=== PATIENT | female | born 1940 | race Caucasian/White ===

== ENCOUNTER → 2018-02-02 11:43 | Outpatient (CLI) | payer MEDICARE, OTHER, SELFPAY ==
--- NOTE | 2018-02-02 | DI.MRI.S_ITS ---
PROCEDURE: MR KNEE LT WO CON INDICATIONS: UNILATERAL PRIMARY OSTEOARTHRITIS LEFT KNEE TECHNIQUE: Noncontrast sagittal PD fast spin echo and T2 fast spin echo with fat saturation, sagittal 3-D FLASH with fat saturation; coronal T1 spin echo and PD fast spin echo with fat saturation, and axial PD fast spin echo with fat saturation through the knee. COMPARISON: [facility] [place], CR, XR KNEE ARTHRITIC SERIES LT, 12/12/2017, 8:23. FINDINGS: Image quality: Excellent. Menisci: There is medial extrusion of the medial meniscus, which demonstrates fragmentation and multifocal degenerative tearing. Linear and amorphous high signal intensity within the anterior horn and body of the lateral meniscus is present, demonstrating inferior articular surface extension, indicating horizontal tearing. Cruciate ligaments: The posterior cruciate ligament demonstrates full thickness tearing. The anterior cruciate ligament demonstrates severe signal loss, consistent with partial-thickness tearing. Medial structures: The medial collateral ligament demonstrates a small region of fluid signal intensity at the femoral insertion site. Visualized portions of the pes anserinus tendons appear normal. No abnormal bursal fluid. Lateral structures: The lateral collateral ligament, long and short heads of the biceps femoris tendon appear intact. The popliteus tendon appears normal. Iliotibial band appears normal. Anterior structures: The quadriceps and patellar tendons appear intact. Patellar alignment is normal. No femoral trochlear dysplasia or ventral trochlear prominence. No edema in the infrapatellar fat pad. Bones and cartilage: No bone marrow contusions or fractures. Severe tricompartmental articular osteophyte formation is present. There is an intramedullary mixed high and low T2 signal intensity focus within the visualized portions of the proximal tibia, measuring at least 66 mm craniocaudal, but extending below the imaged plane. The severe diffuse articular cartilage loss overlies the weightbearing aspects of the medial femoral condyle and medial tibial plateau. Moderate subchondral cysts and ill-defined T2 signal elevation within the weightbearing aspects of the medial femoral condyle and medial tibial plateau are present, compatible with degenerative sequelae. Severe articular cartilage loss overlies the medial patellar facet and medial femoral trochlea. Joint space: There is a small knee joint effusion, a small Miles's cyst, and intra-articular loose bodies, largest of which is are in the anteromedial aspect of the knee joint, measuring roughly 12-13 mm each. Normal appearing synovial plicae are incidentally noted. IMPRESSION: 1. Severe tricompartmental osteoarthritis with associated articular cartilage loss. 2. Full-thickness posterior cruciate ligament tear. High-grade partial thickness anterior cruciate ligament tear. 3. Severe degenerative tearing of the medial meniscus. Next degenerative and horizontal tearing of lateral meniscus. 4. Indeterminate region of intramedullary high and low T2 signal intensity within the proximal tibia, which is incompletely visualized. 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 Repeat plain films of the tibia and fibula are recommended. 5. Knee joint effusion, Miles's cyst, and intra-articular loose bodies. 6. Partial-thickness medial collateral ligament tear. Dictated by: Geno Echevarria M.D. on 02/02/2018 at 13:31 Approved by: Geno Echevarria M.D. on 02/02/2018 at 13:42
== END ==
PROVIDERS: Visit Provider Orthopaedic Surgery
DX: S83.512A Sprain of anterior cruciate ligament of left knee, initial encounter (principal); S83.412A Sprain of medial collateral ligament of left knee, initial encounter; S83.522A Sprain of posterior cruciate ligament of left knee, initial encounter; M17.12 Unilateral primary osteoarthritis, left knee; M71.22 Synovial cyst of popliteal space [Baker], left knee; M25.462 Effusion, left knee; M23.242 Derangement of anterior horn of lateral meniscus due to old tear or injury, left knee; M23.204 Derangement of unspecified medial meniscus due to old tear or injury, left knee
CPT/HCPCS: 73721

== ENCOUNTER → 2018-03-06 11:12 | Outpatient (CLI) | payer MEDICARE, OTHER, SELFPAY ==
[2018-03-06 12:34] LABS: Hemoglobin A1C% w Est Avg Glu 6.1 % (4.0-6.0)
[2018-03-06 12:37] LABS: Add Manual Diff / Slide Review NO; Eosinophils Percent Auto 1.1 % (2-4); Hematocrit 41.6 % (36-46); Lymphocytes Percent Auto 20.8 % (25-40); Mean Corpuscular HGB Conc 33.6 % (30-36); Mean Corpuscular Hemoglobin 29.1 PG (26-34); Mean Corpuscular Volume 86.4 fL (80-100); Monocytes Percent Auto 9.1 % (3-14); Neutrophils Absolute Auto 4900 /uL (3000-5900); Platelet Count 261 X10^3/uL (150-400); Red Blood Cell Count 4.82 X10^6/uL (4.0-5.2); Red Cell Distribution Width 13.2 % (11.6-14.8); White Blood Cell Count 7.2 X10^3/uL (4.5-11.0)
[2018-03-06 12:48] LABS: BUN Creatinine Ratio 18.8 (6-22); Blood Urea Nitrogen 15 mg/dL (7-17); Calcium 9.7 mg/dL (8.4-10.2); Carbon Dioxide 31 mmol/L (22-32); Chloride 98 mmol/L (98-107); Estimated Glomerular Filt Rate > 60.0 mL/min (>60); Glucose 113 mg/dL (80-110); HEMOLYSIS < 15 (0-50); Potassium 3.8 mmol/L (3.4-5.1); Sodium 140 mmol/L (137-145)
== END ==
PROVIDERS: Visit Provider Orthopaedic Surgery
DX: E87.8 Other disorders of electrolyte and fluid balance, not elsewhere classified (principal); M25.562 Pain in left knee; R73.09 Other abnormal glucose; Z01.818 Encounter for other preprocedural examination
CPT/HCPCS: 36415; 80048; 83036; 85025; 93005

== ENCOUNTER 2018-03-23 06:39 | Inpatient (IN) | payer MEDICARE, OTHER, SELFPAY ==
[2018-03-13 09:00] VITALS: BMI 39.4
[2018-03-23] VITALS (13 sets, daily range): BP systolic 97–138; BP diastolic 54–97; PULSE 67–99; RESP 10–20; TEMP 36.3–36.9; O2SAT 91–98; BMI 39.4
--- NOTE | 2018-03-23 06:00 | DI.RAD.S_ITS ---
PROCEDURE: XR KNEE LT 1TO2V INDICATIONS: post op TECHNIQUE: 2 view(s) of the knee acquired. COMPARISON: None. FINDINGS: Bones: Patient is status post knee joint arthroplasty. Hardware components are in expected positions. Visualized bony structures are intact. Soft tissues: Overlying postoperative changes are noted. IMPRESSION: Expected postoperative appearance. Dictated by: Naif Ashley M.D. on 03/23/2018 at 10:33 Approved by: Naif Ashley M.D. on 03/23/2018 at 10:34
[2018-03-23] MEDS: LACTATED RINGERS 1,000 ML 42 ML IV (07:20)
[2018-03-23] MEDS: ACETAMINOPHEN 325 MG TABLET 975 MG PO ×3 (07:23→20:30)
[2018-03-23] MEDS: CELECOXIB 200 MG CAPSULE PO (07:25)
[2018-03-23] MEDS: PREGABALIN 75 MG CAPSULE PO (07:25)
--- NOTE | 2018-03-23 07:47 | PM.PREOP ---
Pre-operative Note Interval Note Pre-op Check: Yes History & Physical Reviewed by Physician and Yes Exam Performed Changes: No
--- NOTE | 2018-03-23 07:50 | PM.OP.1 ---
Operative Date/Time/Diagnoses Date of procedure: 03/23/18 Time of procedure: 09:39 Pre-op diagnosis: Left knee osteoarthritis Post-op diagnosis: same Procedure & Clinicians Procedure: Left total knee arthroplasty Same procedure as scheduled: Yes Indications: The patient presents today for total knee arthroplasty after failure of conservative treatment. The nature of the procedure including the risks and benefits, alternatives, postoperative course and expected outcome were discussed and all questions answered. Consent was obtained. Operative site confirmed and marked. Surgeon: Zay Silva [employer] Tech: Melissa Siddiqui Anesthesia Type: General, Spinal and Local Operative Notes Findings: Osteoarthritis. Closure Type: primary Specimen(s): none sent Implants & Drains: [employer] BCS: 4 femoral component, 3 tibial component, 10 mm BCS polyethylene tray and 32 x9 mm round patella Applied: implant(s) Estimated Blood Loss (mL): 50 Blood products transfused: none Tourniquet time (min): 22 Procedure in detail: The patient was taken to the operative suite and placed under general and spinal anesthesia. The patient was given prophylactic antibiotics prior to surgery. The patient was also given tranexamic acid, 1 g, just prior to surgery for postoperative hemostasis. The lateral knee was prepped and the joint injected with 20 mL of 1% Lidocaine with epinephrine. The knee was then prepped and draped in usual sterile fashion. The leg was exsanguinated with an Esmarch dressing and the tourniquet raised to 250 torr. A 15 cm anterior incision was made. Next a medial trivector arthrotomy was made. The extensor mechanism was marked to ensure accurate repair. Initial exposing dissection was carried out medially and laterally. The knee was then extended and the patellar thickness was measured and a cut made removing approximately 9 mm of bone with a goal of restoring normal patellar thickness. The patella was then sized and drilled. Some excess lateral bone was excised and the patellofemoral ligament released. The tourniquet was then released. The knee was then flexed and the [employer] femoral guide was placed. The anterior pins were placed and the distal rotation holes drilled. The distal cutting guide was placed and the templated distal femoral cut was made. The templating cutting block was then placed and the anterior, posterior and chamfer cuts made. The [employer] tibial guide was placed and the alignment checked along the axis of the proximal tibial with a durga. The proximal tibial cut was then made with an oscillating saw. All meniscus and bony debris was then removed. Flexion extension gaps were checked. The gaps were tight in both flexion and extension. Another 2 mm was taken from the tibia. No specific balancing was required other than routine exposure and removal of osteophytes and normal medial soft tissue releases. The soft tissues were then injected with a combination of 20 mL of half percent Marcaine with epinephrine and 20 mL of Exparel. The trial components were then placed. The knee went into full extension and flexion beyond 120?. There was excellent medial- lateral balance throughout motion with just slight increased laxity in extension versus flexion. Patellar tracking was excellent. The trial components were removed and size is confirmed for the final implants. The knee was then exsanguinated with an Esmarch dressing and the tourniquet reapplied for cementing. The knee was cleansed with Pulsavac irrigation and dried. The final components were cemented in with high viscosity vacuum mixed bone cement with antibiotics. The knee was held in extension and the patellar clamp until the cement had adequately cured. The knee was then irrigated with dilute Betadine solution. The extensor mechanism was closed with 5 interrupted #1 Vicryl sutures in 90 degrees of flexion. The joint was then injected with a combination of 1 g of tranexamic acid and 20 mL of quarter percent Marcaine with epinephrine. The subcutaneous tissue was closed with 2-0 Vicryl. The skin was closed with sivan and surgical he is of. An Aquacel dressing and Lam wrap were then applied. Complications: none Condition: stable Disposition: PACU Plan for aftercare: [facility] protocol.
[2018-03-23] MEDS: CEFAZOLIN 2 GM/100 ML FROZ.PIGGY IV ×2 (08:13→17:22)
--- NOTE | 2018-03-23 08:41 | SUR.OPER ---
Supine on padded OR bed. Pillow under head, arms secured on padded armboards <90 degree abduction. Safety belt across torso. Non-operative leg secured with tape over blanket over lower leg. Operative leg secured in [place]/Cricket positioner. Foam padded brace at thigh of operative leg.
[2018-03-23] MEDS: LIDOCAINE 1% W/EPI INJ 20 ML INJ (08:48)
[2018-03-23] MEDS: BUPIVACAINE 0.5% W/ EPI (PF) 20 ML, BUPIVACAINE LIPOSOME 266 MG, SODIUM CHLORIDE 0.9% 8... INJ (08:48)
[2018-03-23] MEDS: LACTATED RINGERS 1,000 ML 125 ML IV ×2 (11:10→18:40)
[2018-03-23] MEDS: INFLUENZA VACCINE 0.5 ML SYRINGE IM (11:10)
--- NOTE | 2018-03-23 14:35 | PC.NURSE ---
Pt. arrived on unit at 1030 postop right TKA; Alert and oriented x4; Pulse ox 90-96%, has been on intermittent oxygen at 1L; continuous pulse ox; no urine output noted; bed-rest awaiting PT; Pt reports no pain
--- NOTE | 2018-03-23 14:44 | PT.IIE ---
Current Diagnoses Unilateral primary osteoarthritis, right knee (03/23/18) Unilateral primary osteoarthritis, left knee (03/23/18) Surgery Performed Operation Date: 03/23/18 07:45 Actual Procedures p Total Knee Arthroplasty(Left) - Zay Silva MD Surgical History (Last Updated 03/13/18 @ 09:18 by Elida Lin, RN) History of delivery (Acute) Hx of tonsillectomy (Acute) S/P ear surgery (Acute) Status post cataract extraction and insertion of intraocular lens of right eye (Acute) Medical History (Last Updated 03/13/18 @ 09:22 by Elida Lin RN) Achilles tendinitis (Acute) Diabetes (Acute) [place] (hard of hearing) (Acute) HTN (hypertension) (Acute) Physical Therapy Inpatient Evaluation/Re-Eval M1 PT/OT-IP Prior Functional Status Start: 03/23/18 17:14 Freq: NEEDED Status: Active Protocol: Document 03/24/18 08:31 (Rec: 03/24/18 08:31 [email or web address]) Medical Review Prior Functional Status Medical History Reviewed Yes Communication No deficits noted Mobility and Gait Pt used a trekking pole in the R hand for all outdoor and community ambulation. In her home she uses R trekking pole off/on. Prior Functional Level (Other details) Pt states prior independence with all other mobilities. Social History Household Members none Living Arrangements Apartment/Condo Number of Floors (Floors) One Floor Number of Stairs To Enter/Railing? Pt is able to access her home through the garage with no steps. Access to home via front door is 1 step with L rail ascending. Home Environment High Toilet Walk in Shower Home Equipment Front Wheel Walker Shower Seat with Backrest Hand Held Shower Grab Bars In Shower Employment Status Retired Additional Social History Comment Pt also owns one trekking pole (the mate is missing). She can use the wall on the R and counter on the L to sit<>stand from toilet if needed. Her daughter will be avaliable for 1 wk. at discharge for 24/7 assist. M2 PT-IP Current Condition Start: 03/23/18 17:14 Freq: NEEDED Status: Active Protocol: Document 03/24/18 08:31 (Rec: 03/24/18 08:31 [id number]) Physical Therapy Current Condition Current Condition Evaluation Date 03/23/18 Treatment Diagnosis L TKA; difficulty with walking Onset Date 03/23/18 Weight Bearing Status Weight Bearing Status Weight Bear as Tolerated M3 PT-IP Subjective Start: 03/23/18 17:14 Freq: NEEDED Status: Active Protocol: Document 03/23/18 14:44 (Rec: 03/23/18 18:11 [email or web address]) Subjective Physical Therapy Visit Type Type Initial Evaluation Visit Start Time 14:44 Visit Stop Time 15:26 Total Visit Minutes 42 Physical Therapy Visit Comments Patient Comments Pt begins session needing to use the bathroom. She is agreeable to PT including ambulation today. Therapy Pain Assessment Pain When Pain Assessed During Mobility Pain Present Pain Present Pain Reported Location Left Knee Intensity 1 Scale Used Numeric (1 - 10) Pain Management Techniques Apply Cold Elevation Modification of Treatment Re-positioning Timing of Activity with Medications M4 PT-IP Mobility and Gait Start: 03/23/18 17:14 Freq: NEEDED Status: Active Protocol: Document 03/23/18 14:44 (Rec: 03/23/18 18:11 [email or web address]) PT-Bed Mobility Assessment Supine to Sit Supine to Sit Standby Assistance PT-Transfer Assessment Sit to and From Stand Sit to and from Stand Contact Guard Assistance Equipment Transfer Assistive Device Gait Belt Front Wheeled Walker Orthotic/Prosthetic Devices or Brace: No Transfers Transfer Destination Chair Bedside Commode Comments Mobility Comments Pt requiring min to mod cues for hand placement and to feel the back of the chair/commode before sitting. Gait Assessment Gait Gait Assistance Required: Contact Guard Assist Distance (Feet) 10 Able to Maintain Weight Bearing Status Yes During Gait Assistive Devices Assistive Device Gait Belt Front Wheeled Walker Orthotic/Prosthetic Devices or Brace: No Gait Deviations General Gait Pattern Antalgic Decreased Stride Length Decreased Feet Clearance Factors Limiting Gait Function Factors Limiting Gait Function Decreased Activity Tolerance Decreased Strength Limited Range of Motion Pain Poor Balance Poor Safety Awareness Comments Gait Comments Pt needs min cues to use BUE for support during ambulation to offload her LLE and improve gait mechanics. Ambulates 5+ 10 ft in room with CGA and fww . VSS WNL post ambulation and pt reports no symptoms of nausea or dizziness with ambulation. PT-Balance Assessment Sitting Balance and Reactions Static Sitting Balance Ability Good Dynamic Sitting Balance Ability Good Standing Balance and Reactions Static Standing Balance Ability Fair Dynamic Standing Balance Ability Fair Device Used fww M5 PT-IP Objective Assessments Start: 03/23/18 17:14 Freq: NEEDED Status: Active Protocol: Document 03/23/18 14:44 (Rec: 03/23/18 18:11 [email or web address]) Orientation Orientation/Cognition Level of Alertness Alert Orientation Name Birthday Place Situation Safety Awareness Decreased Safety Awareness Gross Range of Motion Lower Extremity ROM Assessment Left Impaired Strength Lower Extremity Strength Assessment Left Impaired Comments Strength Comments LLE 4-/5; RLE 5/5 Sensation Assessment Sensation Gross Sensation WNL Comments Sensation Comments Intact to light touch on plantar surfaces of B feet M6 PT-IP Treatment Start: 03/23/18 17:14 Freq: NEEDED Status: Active Protocol: Document 03/23/18 14:44 (Rec: 03/23/18 18:11 [email or web address]) Physical Therapy Treatment Education Education Provided Precautions Weight Bearing Status Post-Op Packet Safety M7 PT-IP Assessment and Plan Start: 03/23/18 17:14 Freq: NEEDED Status: Active Protocol: Document 03/23/18 14:44 (Rec: 03/23/18 18:11 [email or web address]) PT Summary Assessment and Plan Potential Rehabilitation Potential Good Status of Condition at Evaluation Stable Summary Impairments Pain ROM Strength Balance Coordination Bed Mobility Transfers Gait Activity Tolerance Progress Towards Goals Progressing Toward Goals Assessment Summary Pt s/p L TKA and difficulty with gait. In room ambulation was tolerated very well today and pt denies increased pain, or symptoms of dizziness or nausea. Once patient mobility is improved and she completes stair training with good tolerance, plan is to d/c home with 03/01 assist and f/u OP PT. Goals Bed Mobility Goal Independent Transfer Goal Independent Front Wheeled Walker Gait Goal Standby Assistance Front Wheel Walker Gait Distance 150 Other Goals pt will perform up/down 1 platform step SBA using fww as needed for safe access to home through front entry. Days to Meet Goals 2 Frequency of Treatment Frequency Of Treatment Twice a Day Treatment Plan Physical Therapy Treatment Plan Bed Mobility Training Transfer Training Gait Training Therapeutic Exercise Balance Retraining Post Op Education Discharge Planning Hot or Cold Pack Neuromuscular Re-ed Coordination Retraining Other Recommendations and Next Treatment Progress gait training as Focus tolerated. Progress to stair climbing (up/down 1 with L rail). Recommendations To Nursing Amount of Assist Needed 1 Person Assist Discharge Recommendations PT Discharge Recommendations Home with 24/7 Assist Outpatient PT
--- NOTE | 2018-03-23 16:04 | PT.IIE ---
Current Diagnoses Unilateral primary osteoarthritis, right knee (03/23/18) Unilateral primary osteoarthritis, left knee (03/23/18) Surgery Performed Operation Date: 03/23/18 07:45 Actual Procedures p Total Knee Arthroplasty(Left) - Zay Silva MD Surgical History (Last Updated 03/13/18 @ 09:18 by Elida Lin, RN) History of delivery (Acute) Hx of tonsillectomy (Acute) S/P ear surgery (Acute) Status post cataract extraction and insertion of intraocular lens of right eye (Acute) Medical History (Last Updated 03/13/18 @ 09:22 by Elida Lin, RN) Achilles tendinitis (Acute) Diabetes (Acute) [place] (hard of hearing) (Acute) HTN (hypertension) (Acute)
--- NOTE | 2018-03-23 17:45 | PC.NURSE ---
Addendum entered by Sherly Hilton R.N. 03/23/18 21:10: Stable post op course. Taking Tylenol for discomfort w/good relief. IV fluids continue as per orders HS CBG = 158, no coverage ordered. Had a 300cc emesis earlier this evening by no further issues. Dsg CDI. Call light w/in reach, bed alarm on for pt safety. Original Note: Pt sitting in chair for dinner. Denies discomfort. Lungs clear, SpO2 97RA IV infusing via pump as per orders w/o incidence. Dsg to surguical knee CD. Call light w/in reach.
[2018-03-23] MEDS: ONDANSETRON 4 MG/2 ML INJ IV (18:35)
[2018-03-23] MEDS: METFORMIN HCL 500 MG TABLET 1000 MG PO (20:30)
[2018-03-23] MEDS: ASPIRIN EC 81 MG TABLET PO (20:30)
[2018-03-24] MEDS: CEFAZOLIN 2 GM/100 ML FROZ.PIGGY IV (00:19)
[2018-03-24] MEDS: OXYCODONE IR 5 MG TABLET PO ×3 (00:20→12:51)
[2018-03-24 03:41] VITALS: BP 141/65; PULSE 76; RESP 18; TEMP 36.4; O2SAT 94
[2018-03-24 06:22] LABS: Hematocrit 34.3 % (36-46); Hemoglobin 11.6 g/dL (12.0-16.0)
--- NOTE | 2018-03-24 06:34 | PC.NURSE ---
Going to try and change body view from right knee, as depicted, to the left knee. Patient is s/p left total knee.
--- NOTE | 2018-03-24 08:32 | PT.IIE ---
Addendum entered and electronically signed by Devorah Subramanian PT 03/24/18 08:33: This is to certify that I have reviewed this documentation and plan of care Original Note: Current Diagnoses Unilateral primary osteoarthritis, right knee (03/23/18) Unilateral primary osteoarthritis, left knee (03/23/18) Surgery Performed Operation Date: 03/23/18 07:45 Actual Procedures p Total Knee Arthroplasty(Left) - Zay Silva MD Surgical History (Last Updated 03/13/18 @ 09:18 by Elida Lin RN) History of delivery (Acute) Hx of tonsillectomy (Acute) S/P ear surgery (Acute) Status post cataract extraction and insertion of intraocular lens of right eye (Acute) Medical History (Last Updated 03/13/18 @ 09:22 by Elida Lin RN) Achilles tendinitis (Acute) Diabetes (Acute) IQUGMIUT (hard of hearing) (Acute) HTN (hypertension) (Acute) Physical Therapy Inpatient Evaluation/Re-Eval M1 PT/OT-IP Prior Functional Status Start: 03/23/18 17:14 Freq: NEEDED Status: Active Protocol: Document 03/24/18 08:31 (Rec: 03/24/18 08:31 [id number]) Medical Review Prior Functional Status Medical History Reviewed Yes Communication No deficits noted Mobility and Gait Pt used a trekking pole in the R hand for all outdoor and community ambulation. In her home she uses R trekking pole off/on. Prior Functional Level (Other details) Pt states prior independence with all other mobilities. Social History Household Members none Living Arrangements Apartment/Condo Number of Floors (Floors) One Floor Number of Stairs To Enter/Railing? Pt is able to access her home through the garage with no steps. Access to home via front door is 1 step with L rail ascending. Home Environment High Toilet Walk in Shower Home Equipment Front Wheel Walker Shower Seat with Backrest Hand Held Shower Grab Bars In Shower Employment Status Retired Additional Social History Comment Pt also owns one trekking pole (the mate is missing). She can use the wall on the R and counter on the L to sit<>stand from toilet if needed. Her daughter will be avaliable for 1 wk. at discharge for 24/7 assist. M2 PT-IP Current Condition Start: 03/23/18 17:14 Freq: NEEDED Status: Active Protocol: Document 03/24/18 08:31 (Rec: 03/24/18 08:31 [id number]) Physical Therapy Current Condition Current Condition Evaluation Date 03/23/18 Treatment Diagnosis L TKA; difficulty with walking Onset Date 03/23/18 Weight Bearing Status Weight Bearing Status Weight Bear as Tolerated M3 PT-IP Subjective Start: 03/23/18 17:14 Freq: NEEDED Status: Active Protocol: Document 03/23/18 14:44 (Rec: 03/23/18 18:11 [email or web address]) Subjective Physical Therapy Visit Type Type Initial Evaluation Visit Start Time 14:44 Visit Stop Time 15:26 Total Visit Minutes 42 Physical Therapy Visit Comments Patient Comments Pt begins session needing to use the bathroom. She is agreeable to PT including ambulation today. Therapy Pain Assessment Pain When Pain Assessed During Mobility Pain Present Pain Present Pain Reported Location Left Knee Intensity 1 Scale Used Numeric (1 - 10) Pain Management Techniques Apply Cold Elevation Modification of Treatment Re-positioning Timing of Activity with Medications M4 PT-IP Mobility and Gait Start: 03/23/18 17:14 Freq: NEEDED Status: Active Protocol: Document 03/23/18 14:44 (Rec: 03/23/18 18:11 [email or web address]) PT-Bed Mobility Assessment Supine to Sit Supine to Sit Standby Assistance PT-Transfer Assessment Sit to and From Stand Sit to and from Stand Contact Guard Assistance Equipment Transfer Assistive Device Gait Belt Front Wheeled Walker Orthotic/Prosthetic Devices or Brace: No Transfers Transfer Destination Chair Bedside Commode Comments Mobility Comments Pt requiring min to mod cues for hand placement and to feel the back of the chair/commode before sitting. Gait Assessment Gait Gait Assistance Required: Contact Guard Assist Distance (Feet) 10 Able to Maintain Weight Bearing Status Yes During Gait Assistive Devices Assistive Device Gait Belt Front Wheeled Walker Orthotic/Prosthetic Devices or Brace: No Gait Deviations General Gait Pattern Antalgic Decreased Stride Length Decreased Feet Clearance Factors Limiting Gait Function Factors Limiting Gait Function Decreased Activity Tolerance Decreased Strength Limited Range of Motion Pain Poor Balance Poor Safety Awareness Comments Gait Comments Pt needs min cues to use BUE for support during ambulation to offload her LLE and improve gait mechanics. Ambulates 5+ 10 ft in room with CGA and fww . VSS WNL post ambulation and pt reports no symptoms of nausea or dizziness with ambulation. PT-Balance Assessment Sitting Balance and Reactions Static Sitting Balance Ability Good Dynamic Sitting Balance Ability Good Standing Balance and Reactions Static Standing Balance Ability Fair Dynamic Standing Balance Ability Fair Device Used fww M5 PT-IP Objective Assessments Start: 03/23/18 17:14 Freq: NEEDED Status: Active Protocol: Document 03/23/18 14:44 (Rec: 03/23/18 18:11 [email or web address]) Orientation Orientation/Cognition Level of Alertness Alert Orientation Name Birthday Place Situation Safety Awareness Decreased Safety Awareness Gross Range of Motion Lower Extremity ROM Assessment Left Impaired Strength Lower Extremity Strength Assessment Left Impaired Comments Strength Comments LLE 4-/5; RLE 5/5 Sensation Assessment Sensation Gross Sensation WNL Comments Sensation Comments Intact to light touch on plantar surfaces of B feet M6 PT-IP Treatment Start: 03/23/18 17:14 Freq: NEEDED Status: Active Protocol: Document 03/23/18 14:44 (Rec: 03/23/18 18:11 [email or web address]) Physical Therapy Treatment Education Education Provided Precautions Weight Bearing Status Post-Op Packet Safety M7 PT-IP Assessment and Plan Start: 03/23/18 17:14 Freq: NEEDED Status: Active Protocol: Document 03/23/18 14:44 (Rec: 03/23/18 18:11 [email or web address]) PT Summary Assessment and Plan Potential Rehabilitation Potential Good Status of Condition at Evaluation Stable Summary Impairments Pain ROM Strength Balance Coordination Bed Mobility Transfers Gait Activity Tolerance Progress Towards Goals Progressing Toward Goals Assessment Summary Pt s/p L TKA and difficulty with gait. In room ambulation was tolerated very well today and pt denies increased pain, or symptoms of dizziness or nausea. Once patient mobility is improved and she completes stair training with good tolerance, plan is to d/c home with 24/7 assist and f/u OP PT. Goals Bed Mobility Goal Independent Transfer Goal Independent Front Wheeled Walker Gait Goal Standby Assistance Front Wheel Walker Gait Distance 150 Other Goals pt will perform up/down 1 platform step SBA using fww as needed for safe access to home through front entry. Days to Meet Goals 2 Frequency of Treatment Frequency Of Treatment Twice a Day Treatment Plan Physical Therapy Treatment Plan Bed Mobility Training Transfer Training Gait Training Therapeutic Exercise Balance Retraining Post Op Education Discharge Planning Hot or Cold Pack Neuromuscular Re-ed Coordination Retraining Other Recommendations and Next Treatment Progress gait training as Focus tolerated. Progress to stair climbing (up/down 1 with L rail). Recommendations To Nursing Amount of Assist Needed 1 Person Assist Discharge Recommendations PT Discharge Recommendations Home with / Assist Outpatient PT
[2018-03-24] MEDS: ACETAMINOPHEN 325 MG TABLET 975 MG PO ×3 (08:38→19:59)
[2018-03-24] MEDS: METFORMIN HCL 500 MG TABLET 1000 MG PO ×2 (08:38→20:04)
[2018-03-24] MEDS: ASPIRIN EC 81 MG TABLET PO ×2 (08:38→20:00)
[2018-03-24] MEDS: TRIAMTERENE/HCTZ 37.5/25 TABLET 1 CAP PO (08:39)
--- NOTE | 2018-03-24 09:13 | CM.DANOTE ---
Discharge Planning/Care Management CM Discharge Assessment Start: 03/24/18 08:02 Freq: Status: Active Protocol: Document 03/24/18 08:57 ITV (Rec: 03/24/18 09:13 ITV [email or web address]) Discharge Planning Assessment Advance Directives? Yes: also has a POLST form Advance Directives on File No History Provided By Patient Medical Record Prior Living Arrangements Apartment/Condo Household Members none Facility Name Admitted From: [facility] Willing to Return to Facility? Yes: [facility]: independent [facility] area. Independent with ADL's Yes Is patient alert and oriented? Yes Patient/Family Preference OP PT Therapy Comment PT is set up with outpt PT/ [facility]: they work with [facility] and are able to go directly to her [facility] to work with her. Is considerred Outpt PT, not home health Transportation Arrangement family Whiteboard Updated in Patient Room with Yes name and ext. # of Electric Motor Control Assembler Review Status In Process Next Review Type Continued Stay Review Pre-Anesthesia Assessment Start: 03/13/18 09:00 Freq: Status: Complete Protocol: Document 03/13/18 09:00 CAB (Rec: 03/13/18 09:33 CAB [id number]) Pre-Anesthesia Assessment Patient Also Known As (ERIN) Maddy or Mary Patient Information Reviewed Via Phone Assessment Assessment Completed With Patient Lab Results BMP/CMP CBC EKG Primary Care Provider Anais Hedrick Seen Specialist in Last 12 Months Yes Specialist Seen Opthamologist/Hotel Receptionist Orthopedist Primary Language Icelandic Overhead Crane Technician Required No Height 157.48 cm Weight 97.976 kg Body Mass Index (BMI) 39.4 Hearing Ability Hard of Hearing Use of Hearing Aid Visual Assist Glasses Dentition Type Teeth, Natural Present Barriers to Learning Auditory Other Aids No Hx Anesthesia Reactions No Hx Family Anesthesia Reaction No Hx Malignant Hyperthermia No Hx Blood Transfusions No Anesthesia Review Requested No Quantitative Associate No alcohol intake current alcohol intake frequency a few times a week Smoking Status Never smoker Substance Use Type does not use Pain Present Pain Reported Musculoskeletal Symptoms Abnormal Gait Difficulty Walking Joint Pain History of Falling (Recent or History of No ) Patient is completely paralyzed or No completely immobile Mental Status Oriented to own ability Comment Uses one hiking pole Is patient on oxygen? No Does patient have CASILLAS/SOB No Hx Sleep Apnea No Suspected Sleep Apnea No Currently Taking a Beta Edelmira No Can You Climb a Flight of Stairs Without No SOB Hx Chest Pain No Hx SOB No Hx Syncope or Dizziness No Anti-Coagulant Therapy No Has a Heat Seal Operator No Cardiac Testing No Hx Pacemaker/ICD No Pacemaker Rep Required? No Cardiac Clearance Received Not Applicable Diet Type At Home Regular dysphagia No Bladder Pattern Frequency Incontinent, Stress Nocturia Urgency Urinary Catheter Present No Hx Urinary Self Catheterization No Diabetes Yes: Pt does not check blood sugar at home HgbA1C 6.1 Date 03/06/18 Comment Diagnosed 12/2017 Patient No Lactating No Hx Drug Resistant Organism No Presence of External or Internal Medical Yes Devices Comment right eye lens Have you traveled outside the [facility] in the last 30 days? Marital Status / Lives With none Prior Living Arrangements Apartment/Condo Number of Floors (Floors) One Floor Number of Stairs To Enter/Railing? none Support System Child/Children Does the Patient Have Assistance After Yes Surgery Patient Discharge Plan Description Return Home Comment Daughter will stay with patient upon discharge to assist w/care Feels Safe in Current Environment Yes Been Physically Hurt or Threatened By a No Person in Current Environment Do you have thoughts of harming yourself None or others? Are you currently considering suicide? No Do you have a plan to hurt yourself or No Plan others? Do You Have Any Spiritual Beliefs That No May Affect Your HC Choices? Do You Have Any Cultural Practices That No May Affect Your HC Choices? Spiritual Referral None Who Can We Speak to About Patient's Care Family, friends Identifying Code for Release of Patient Declines to issue Information Health Care Proxy/Next of Kin Jailyn vyas) Health Care Proxy Phone Number Home: Cell: Emergency Contact Name Jailyn Amie vyas) Emergency Contact Phone Number Home: Cell: Advance Directives? Yes: also has a POLST form Advance Directives on File No Requested Patient Bring Advanced Yes Directives DOS Power of Community Health Director Yes Power of Community Health Director Name Jailyn Amie vyas) Power of Community Health Director Phone Number Home: Cell: PAC Instructions Do not shave/clip surgical site Durable medical equipment Medications to take/avoid Nasal antibiotic No ETOH/petroleum product on skin DOS NPO Ortho class Post-op transportation Pre-surgical wash Sturdy shoes/comfortable clothes Do not bring valuables and remove jewelry
--- NOTE | 2018-03-24 09:14 | CM.DANOTE ---
Discharge Planning/Care Management DCP: assessment: case received, EMR reviewed and met with pt this morning. Introduced self and role. Pt is a 77 year old female who admitted yesterday for a planned L TKA. Surgeon: Dr. Silva. Pt has recently moved from her long time home to be near her daughter Daquan. Jailyn will stay with her a few nights and both are close by. P: home when stable for same. [facility]. OUTPT PT is set up CM Discharge Assessment Start: 03/24/18 08:02 Freq: Status: Active Protocol: Document 03/24/18 08:57 ITV (Rec: 03/24/18 09:13 ITV [email or web address]) Discharge Planning Assessment Advance Directives? Yes: also has a POLST form Advance Directives on File No History Provided By Patient Medical Record Prior Living Arrangements Apartment/Condo Household Members none Facility Name Admitted From: [facility] Willing to Return to Facility? Yes: [facility]: [facility]. Independent with ADL's Yes Is patient alert and oriented? Yes Patient/Family Preference OP PT Therapy Comment PT is set up with outpt PT/ [facility]: they work with [facility] and are able to go directly [place] [facility] [place] her. Is considerred Outpt PT, not home health Transportation Arrangement family Whiteboard Updated in Patient Room with Yes name and ext. # of Tram Driver Review Status In Process Next Review Type Continued Stay Review Pre-Anesthesia Assessment Start: 03/13/18 09:00 Freq: Status: Complete Protocol: Document 03/13/18 09:00 CAB (Rec: 03/13/18 09:33 CAB [id number]) Pre-Anesthesia Assessment Patient Also Known As (ERIN) Maddy or Mary Patient Information Reviewed Via Phone Assessment Assessment Completed With Patient Lab Results BMP/CMP CBC EKG Primary Care Provider Anais Hedrick Seen Specialist in Last 12 Months Yes Specialist Seen Opthamologist/Jewel Hole Cornerer Orthopedist Primary Language Belgian Rf Manager Required No Height 157.48 cm Weight 97.976 kg Body Mass Index (BMI) 39.4 Hearing Ability Hard of Hearing Use of Hearing Aid Visual Assist Glasses Dentition Type Teeth, Natural Present Barriers to Learning Auditory Other Aids No Hx Anesthesia Reactions No Hx Family Anesthesia Reaction No Hx Malignant Hyperthermia No Hx Blood Transfusions No Anesthesia Review Requested No Cook Ice Cream No alcohol intake current alcohol intake frequency a few times a week Smoking Status Never smoker Substance Use Type does not use Pain Present Pain Reported Musculoskeletal Symptoms Abnormal Gait Difficulty Walking Joint Pain History of Falling (Recent or History of No ) Patient is completely paralyzed or No completely immobile Mental Status Oriented to own ability Comment Uses one hiking pole Is patient on oxygen? No Does patient have CASILLAS/SOB No Hx Sleep Apnea No Suspected Sleep Apnea No Currently Taking a Beta Edelmira No Can You Climb a Flight of Stairs Without No SOB Hx Chest Pain No Hx SOB No Hx Syncope or Dizziness No Anti-Coagulant Therapy No Has a Metal Coater Operator No Cardiac Testing No Hx Pacemaker/ICD No Pacemaker Rep Required? No Cardiac Clearance Received Not Applicable Diet Type At Home Regular dysphagia No Bladder Pattern Frequency Incontinent, Stress Nocturia Urgency Urinary Catheter Present No Hx Urinary Self Catheterization No Diabetes Yes: Pt does not check blood sugar at home HgbA1C 6.1 Date 03/06/18 Comment Diagnosed 12/2017 Patient No Lactating No Hx Drug Resistant Organism No Presence of External or Internal Medical Yes Devices Comment right eye lens Have you traveled outside the [facility] in the last 30 days? Marital Status / Lives With none Prior Living Arrangements Apartment/Condo Number of Floors (Floors) One Floor Number of Stairs To Enter/Railing? none Support System Child/Children Does the Patient Have Assistance After Yes Surgery Patient Discharge Plan Description Return Home Comment Daughter will stay with patient upon discharge to assist w/care Feels Safe in Current Environment Yes Been Physically Hurt or Threatened By a No Person in Current Environment Do you have thoughts of harming yourself None or others? Are you currently considering suicide? No Do you have a plan to hurt yourself or No Plan others? Do You Have Any Spiritual Beliefs That No May Affect Your HC Choices? Do You Have Any Cultural Practices That No May Affect Your HC Choices? Spiritual Referral None Who Can We Speak to About Patient's Care Family, friends Identifying Code for Release of Patient Declines to issue Information Health Care Proxy/Next of Kin Jailyn vyas) Health Care Proxy Phone Number Home: Cell: Emergency Contact Name Jailyn vyas) Emergency Contact Phone Number Home: Cell: Advance Directives? Yes: also has a POLST form Advance Directives on File No Requested Patient Bring Advanced Yes Directives DOS Power of Conditioner Tumbler Operator Yes Power of Conditioner Tumbler Operator Name Jailyn Holloway (gorge) Power of Conditioner Tumbler Operator Phone Number Home: Cell: PAC Instructions Do not shave/clip surgical site Durable medical equipment Medications to take/avoid Nasal antibiotic No ETOH/petroleum product on skin DOS NPO Ortho class Post-op transportation Pre-surgical wash Sturdy shoes/comfortable clothes Do not bring valuables and remove jewelry
--- NOTE | 2018-03-24 09:58 | PT.IPTN ---
Current Diagnoses Unilateral primary osteoarthritis, right knee (03/23/18) Unilateral primary osteoarthritis, left knee (03/23/18) Surgery Performed Operation Date: 03/23/18 07:45 Actual Procedures p Total Knee Arthroplasty(Left) - Zay Silva MD Physical Therapy Treatment Note M2 PT-IP Current Condition Start: 03/23/18 17:14 Freq: NEEDED Status: Active Protocol: Document 03/24/18 08:31 (Rec: 03/24/18 08:31 [id number]) Physical Therapy Current Condition Current Condition Evaluation Date 03/23/18 Treatment Diagnosis L TKA; difficulty with walking Onset Date 03/23/18 Weight Bearing Status Weight Bearing Status Weight Bear as Tolerated M3 PT-IP Subjective Start: 03/23/18 17:14 Freq: NEEDED Status: Active Protocol: Document 03/24/18 09:49 SA (Rec: 03/24/18 09:57 SA [id number]) Subjective Physical Therapy Visit Type Type Treatment Note Visit Start Time 09:00 Visit Stop Time 09:30 Total Visit Minutes 30 Notes Review of TKA packet, compelted exercises and worked on gait training and trasnfers. Number of SPECTROSCOPIST Visits 1 Physical Therapy Visit Comments Patient Comments Pt rated pain as 2/10 and recieved pain meds about 25 min prior to session, agreeable to PT and receptive to education. Therapy Pain Assessment Pain When Pain Assessed During Mobility Pain Present Pain Present Pain Reported Location Left Knee Intensity 2 Scale Used Numeric (1 - 10) Description Acute Pain Management Techniques Apply Cold Re-positioning M4 PT-IP Mobility and Gait Start: 03/23/18 17:14 Freq: NEEDED Status: Active Protocol: Document 03/24/18 09:49 SA (Rec: 03/24/18 09:57 SA [id number]) PT-Transfer Assessment Sit to and From Stand Sit to and from Stand Contact Guard Assistance Equipment Transfer Assistive Device Front Wheeled Walker Orthotic/Prosthetic Devices or Brace: No Transfers Transfer Destination Chair Transfer Technique Stand Step Pivot Transfer Ability Level of Assist Contact Guard Assistance Comments Mobility Comments used FWW Gait Assessment Gait Gait Assistance Required: Contact Guard Assist Assistive Devices Assistive Device Front Wheeled Walker Orthotic/Prosthetic Devices or Brace: No Gait Deviations General Gait Pattern Decreased Stride Length Decreased Feet Clearance Step-to Gait Factors Limiting Gait Function Factors Limiting Gait Function Decreased Strength Limited Range of Motion Pain Comments Gait Comments Training for increasing WBing on LLE to improve RLE step length and foot clearance. M5 PT-IP Objective Assessments Start: 03/23/18 17:14 Freq: NEEDED Status: Active Protocol: Document 03/23/18 14:44 (Rec: 03/23/18 18:11 [email or web address]) Orientation Orientation/Cognition Level of Alertness Alert Orientation Name Birthday Place Situation Safety Awareness Decreased Safety Awareness Gross Range of Motion Lower Extremity ROM Assessment Left Impaired Strength Lower Extremity Strength Assessment Left Impaired Comments Strength Comments LLE 4-/5; RLE 5/5 Sensation Assessment Sensation Gross Sensation WNL Comments Sensation Comments Intact to light touch on plantar surfaces of B feet M6 PT-IP Treatment Start: 03/23/18 17:14 Freq: NEEDED Status: Active Protocol: Document 03/24/18 09:49 SA (Rec: 03/24/18 09:57 SA [id number]) Physical Therapy Treatment Exercises Exercises Ankle Pumps Quad Sets Heel Slides Seated Knee Flexion/Extension Education Education Provided Post-Op Packet Safety Equipment Issued Equipment Type and Company FW M7 PT-IP Assessment and Plan Start: 03/23/18 17:14 Freq: NEEDED Status: Active Protocol: Document 03/24/18 09:49 SA (Rec: 03/24/18 09:57 [id number]) PT Summary Assessment and Plan Potential Rehabilitation Potential Good Summary Impairments Pain ROM Strength Activity Tolerance Progress Towards Goals Progressing Toward Goals Frequency of Treatment Frequency Of Treatment Twice a Day Treatment Plan Physical Therapy Treatment Plan Bed Mobility Training Transfer Training Gait Training Therapeutic Exercise Post Op Education Discharge Planning Hot or Cold Pack Recommendations To Nursing Amount of Assist Needed 1 Person Assist Discharge Recommendations PT Discharge Recommendations Home with Assistance
[2018-03-24 11:46] VITALS: BP 148/66; PULSE 81; RESP 18; TEMP 37; O2SAT 92
--- NOTE | 2018-03-24 11:51 | PM.PNPO.1 ---
Subjective Date Patient Seen: 03/24/18 Time Patient Seen: 11:51 Interval history: POD #1 status post left total knee arthroplasty with Dr. Silva. Patient's pain is well controlled with oxycodone. She is taking aspirin for DVT prophylaxis. She has been up and ambulating with physical therapy. Exam Vital Signs (past 8 hours): - 03/24/18 11:46 Temperature 98.6 F Pulse Rate 81 Respiratory Rate 18 Blood Pressure 148/66 H Pulse Oximetry 92 Oxygen Delivery Method Room Air Oxygen Flow Rate 0 Narrative Exam Narrative: Patient is sitting at bedside chair in no acute distress. She is alert and oriented x3. Calves are soft, compressible, nontender bilaterally. Dressing on left knee is CDI. Sensation intact light touch throughout bilateral lower extremities. She is able to actively dorsiflex and plantar flex. Objective Labs Result Diagrams: 03/24/18 06:01 Labs: Laboratory Results - last 24 hr 03/24/18 06:01 Hgb 11.6 L Hct 34.3 L Assessment & Plan Post-op Postoperative Procedures Operation Date: 03/23/18 07:45 Actual Procedures Side Surgeon p Total Knee Arthroplasty Left Zay Silva MD POD #1 status post left total knee arthroplasty with Dr. Silva. Continue current pain management. Patient is [facility] patient, has medications at home already. She has outpatient PT scheduled. She will continue to mobilize with physical therapy this afternoon. Continue ASA for DVT prophylaxis. Patient will likely discharged today or tomorrow, once mobilizing safely and pain adequately controlled.
[2018-03-24] MEDS: IBUPROFEN 600 MG TABLET PO (12:53)
--- NOTE | 2018-03-24 14:39 | PC.NURSE ---
AM NOTE - up chair for meals, pain 5-7 on scale 0/10, given scheduled tylenol and oxycodone 5mg for pain management, after lunch added addl ibuprofen for relief, mirtha dsg cdi w/sondra wrap over, 1+ pedal, ra 94% enc freq use IS and pt can reach 1200, afternoon phys therapy with family and pt does not feel comfortable going home this afternoon and would prefer addl phys therapy in am, as discussed with Madeline CRESPO earlier, the dc was cancelled.
--- NOTE | 2018-03-24 15:14 | PT.IPTN ---
Current Diagnoses Unilateral primary osteoarthritis, right knee (03/23/18) Unilateral primary osteoarthritis, left knee (03/23/18) Surgery Performed Operation Date: 03/23/18 07:45 Actual Procedures p Total Knee Arthroplasty(Left) - Zay Silva MD Physical Therapy Treatment Note M2 PT-IP Current Condition Start: 03/23/18 17:14 Freq: NEEDED Status: Active Protocol: Document 03/24/18 08:31 (Rec: 03/24/18 08:31 [id number]) Physical Therapy Current Condition Current Condition Evaluation Date 03/23/18 Treatment Diagnosis L TKA; difficulty with walking Onset Date 03/23/18 Weight Bearing Status Weight Bearing Status Weight Bear as Tolerated M3 PT-IP Subjective Start: 03/23/18 17:14 Freq: NEEDED Status: Active Protocol: Document 03/24/18 14:59 SA (Rec: 03/24/18 15:14 SA [email or web address]) Subjective Physical Therapy Visit Type Type Treatment Note Visit Start Time 13:30 Visit Stop Time 14:05 Total Visit Minutes 35 Notes Caregiver training completed with pateint's daughter for transfers, ed mobility and ambulation. Number of MANAGER ASSISTED LIVING Visits 2 Physical Therapy Visit Comments Patient Comments Reviwed TKA packet exercises and mobility with patient and caregiver. Therapy Pain Assessment Pain When Pain Assessed During Mobility Pain Present Pain Present Pain Reported Location Left Knee Intensity 2 Scale Used Numeric (1 - 10) M4 PT-IP Mobility and Gait Start: 03/23/18 17:14 Freq: NEEDED Status: Active Protocol: Document 03/24/18 14:59 SA (Rec: 03/24/18 15:14 SA [email or web address]) PT-Bed Mobility Assessment Rolling Type of Rolling Roll to Right Level of Assist Contact Guard Assistance Supine to Sit Supine to Sit Contact Guard Assistance Sit to Supine Sit to Supine Contact Guard Assistance Scooting Scooting to Edge of Bed Standby Assistance Scooting Up and Down in Bed Contact Guard Assistance PT-Transfer Assessment Sit to and From Stand Sit to and from Stand Standby Assistance Equipment Transfer Assistive Device Front Wheeled Walker Orthotic/Prosthetic Devices or Brace: No Transfers Transfer Destination Chair Transfer Technique Stand Step Pivot Transfer Ability Level of Assist Standby Assistance Comments Mobility Comments Cues for safety/technique with transfers and bed mobility. Gait Assessment Gait Gait Assistance Required: Contact Guard Assist Distance (Feet) 85 Assistive Devices Assistive Device Front Wheeled Walker Orthotic/Prosthetic Devices or Brace: No Gait Deviations General Gait Pattern Decreased Stride Length Decreased Feet Clearance Factors Limiting Gait Function Factors Limiting Gait Function Decreased Strength Limited Range of Motion Pain Comments Gait Comments Training for increasing WBing on LLE to improve RLE step length and foot clearance. M5 PT-IP Objective Assessments Start: 03/23/18 17:14 Freq: NEEDED Status: Active Protocol: Document 03/23/18 14:44 (Rec: 03/23/18 18:11 [email or web address]) Orientation Orientation/Cognition Level of Alertness Alert Orientation Name Birthday Place Situation Safety Awareness Decreased Safety Awareness Gross Range of Motion Lower Extremity ROM Assessment Left Impaired Strength Lower Extremity Strength Assessment Left Impaired Comments Strength Comments LLE 4-/5; RLE 5/5 Sensation Assessment Sensation Gross Sensation WNL Comments Sensation Comments Intact to light touch on plantar surfaces of B feet M6 PT-IP Treatment Start: 03/23/18 17:14 Freq: NEEDED Status: Active Protocol: Document 03/24/18 14:59 SA (Rec: 03/24/18 15:14 SA [email or web address]) Physical Therapy Treatment Exercises Exercises Ankle Pumps Quad Sets Heel Slides Seated Knee Flexion/Extension Education Education Provided Post-Op Packet Safety Equipment Issued Equipment Type and Company FWW M7 PT-IP Assessment and Plan Start: 03/23/18 17:14 Freq: NEEDED Status: Active Protocol: Document 03/24/18 14:59 SA (Rec: 03/24/18 15:14 SA [email or web address]) PT Summary Assessment and Plan Potential Rehabilitation Potential Good Status of Condition at Evaluation Stable Summary Impairments Pain ROM Strength Activity Tolerance Progress Towards Goals Progressing Toward Goals
[2018-03-24 16:06] VITALS: BP 147/79; PULSE 85; RESP 19; TEMP 36.5; O2SAT 98
[2018-03-24 21:35] VITALS: BP 150/65; PULSE 80; RESP 18; TEMP 36.8; O2SAT 92
[2018-03-25] MEDS: IBUPROFEN 600 MG TABLET PO (00:12)
[2018-03-25] MEDS: OXYCODONE IR 5 MG TABLET PO ×3 (00:12→08:53)
[2018-03-25] MEDS: ONDANSETRON 4 MG ODT PO (00:13)
[2018-03-25 00:14] VITALS: BP 131/67; PULSE 85; RESP 16; TEMP 36.6; O2SAT 92
--- NOTE | 2018-03-25 00:39 | PC.NURSE ---
Acupressure Therapist Note: 0015: Awake, reports 5/10 pain and asking for pain medication. Medicated with Ibuprophen 600mg and Oxycodone 5mg po. Pt states she is concerned about nausea from the Oxycodone. Zofran 4mg po given. Saline lock in place in lt hand. Dressing to lt knee cdi. Pt encouraged to do ankle waving.
--- NOTE | 2018-03-25 07:42 | PM.DS.1 ---
History of Present Illness Date Patient Seen: 03/25/18 Time Patient Seen: 07:44 Chief complaint: left total knee surgery [id number] Narrative: The patient presents today for total knee arthroplasty after failure of conservative treatment. The nature of the procedure including the risks and benefits, alternatives, postoperative course and expected outcome were discussed and all questions answered. Consent was obtained. Operative site confirmed and marked. Patient seen bedside. Discharge Providers Date of admission: 03/23/18 06:39 Primary care physician: Anais Hedrick PA-C Consults: 03/23/18 06:00 Consult to Anesthesiology Routine Comment: Consulting Provider: Anesthesiologist Reason for consultation: Regional block for post operative pain control 03/23/18 10:41 Consult to Discharge Planning Routine Comment: Consult to Physical Therapy Evaluate & Treat Comment: Physician Instructions: postop TKA protocol Consult to Respiratory Therapy Evaluate & Treat Comment: Physician Instructions: Evaluate and treat Discharge provider: Renea Mejais PA-C Discharge Date: 03/25/18 Summary Discharge Diagnosis: Left knee osteoarthritis Hospital Course: Patient was admitted status post Left total knee arthroplasty with Dr. Silva on 03/23/18. Patient tolerated procedure well with no major complications. Patient transferred to the floor and seen by PT who recommended she be discharged home with outpatient PT. Patient is stable and ready for discharge on 03/25/18. Patient daughter is home to assist her. Her pain was well controlled with oxycodone 5mg. Calfs are soft, compressible and non tender bilaterally. L knee dressing CDI. Status at Discharge Functional status at discharge: uses cane/walker Overall status at discharge: patient is progressing back to baseline Time Spent with Patient Less than 30 minutes Exam Vital Signs (past 8 hours): - 03/25/18 00:14 Temperature 97.9 F Pulse Rate 85 Respiratory Rate 16 Blood Pressure 131/67 Pulse Oximetry 92 Oxygen Delivery Method Room Air Oxygen Flow Rate 0 Narrative Exam Narrative: Patient is sitting upright in bed with no acute distress. She is AOx3. Radial and dorsalis pedis pulses 2+ and symmetric. Sensation to light touch intact in LE bilaterally. Muscle strength adequate in dorsiflexion, plantarflexion and medical pathology teacher bilaterally. Calfs are soft, compressible and non tender bilaterally. L knee dressing is CDI. Patient reports she would like to go home today. She reports her daughter will be coming to pick her up upon discharge and will be home to assist her. She reports that her pain is manageable at this time. She is [facility] and has her prescriptions filled at home. She denies any chest pain, SOB, nausea, vomiting, chills or fever. Objective Labs Result Diagrams: 03/24/18 06:01 Discharge Plan Discharge Plan Patient Disposition: Home Discharge comment: Possible DC this afternoon Discharge Med Rec/Prescriptions Prescriptions: New acetaminophen 325 mg Tablet 975 mg PO TID Qty: 60 RF: 0 Continue metformin 500 mg Tablet 1,000 mg PO BID RF: 0 triamterene-hydrochlorothiazid 37.5-25 mg Capsule 1 cap PO DAILY RF: 0 naproxen sodium [Aleve] 220 mg Capsule 220 mg PO QAM PRN (Reason: pain) RF: 0 Changed aspirin 81 mg Tablet,Delayed Release (Dr/Ec) 81 mg PO BID Qty: 0 RF: 0 Follow up/Referrals: Zay Silva MD [Physician] - (F/U in 5-7 days with [facility]IR) Anais Hedrick PA-C [Primary Care Provider] - Provider Discharge Instructions Diet: Carb-consistent/Diabetic Activity: Weight bearing as tolerated. Continue to use cane/walker until cleared by PT. Cold/Heat Therapy: As needed Skin/Wound/Dressing Care Report to your healthcare provider any signs of infection, such as:: chills, fever and increased pain Dressing: Leave in place for 10-14 days Visit Report/Discharge Packet Instructions: DI for Knee Replacement Visit Report Forms: Stroke Signs & Symptoms Discharge Data Primary Care Provider: Anais Hedrick Attending Provider: Zay Silva Admit Date/Time: 03/23/18 06:39
[2018-03-25] MEDS: ACETAMINOPHEN 325 MG TABLET 975 MG PO (08:49)
[2018-03-25] MEDS: METFORMIN HCL 500 MG TABLET 1000 MG PO (08:50)
[2018-03-25] MEDS: TRIAMTERENE/HCTZ 37.5/25 TABLET 1 CAP PO (08:51)
[2018-03-25] MEDS: SODIUM CHLORIDE 0.9% FLUSH 10 ML IV (08:51)
[2018-03-25 09:10] VITALS: BP 151/78; PULSE 92; RESP 24; TEMP 36.9; O2SAT 94
[2018-03-25] MEDS: ASPIRIN EC 81 MG TABLET PO (10:07)
--- NOTE | 2018-03-25 10:30 | PC.NURSE ---
Addendum entered by Jailyn Shah R.N. 03/25/18 12:41: DC - after cleared by phys therapy, pt dtr arrived and reviewed dc instructions, they had scripts provided and filled prior to surgery, belongings gathered, including cell phone and medical bill processor, clothing, bag, tsf to wc and escorted by control board operator to family car. Original Note: AM NOTE - up to chair for breakfast, states pain management gradually improving, discussed pain mgt and given scheduled tylenol and 5mg oxycodone after breakfast, ra 92%, enc freq use IS and pt able reach approx 1200, PA in this am and pt plans to dc after phys therapy this am.
--- NOTE | 2018-03-25 10:40 | PT.IPTN ---
Current Diagnoses Unilateral primary osteoarthritis, right knee (03/23/18) Unilateral primary osteoarthritis, left knee (03/23/18) Surgery Performed Operation Date: 03/23/18 07:45 Actual Procedures p Total Knee Arthroplasty(Left) - Zay Silva MD Physical Therapy Treatment Note M2 PT-IP Current Condition Start: 03/23/18 17:14 Freq: NEEDED Status: Active Protocol: Document 03/24/18 08:31 (Rec: 03/24/18 08:31 [id number]) Physical Therapy Current Condition Current Condition Evaluation Date 03/23/18 Treatment Diagnosis L TKA; difficulty with walking Onset Date 03/23/18 Weight Bearing Status Weight Bearing Status Weight Bear as Tolerated M3 PT-IP Subjective Start: 03/23/18 17:14 Freq: NEEDED Status: Active Protocol: Document 03/25/18 10:40 GGD (Rec: 03/25/18 12:18 GGD [email or web address]) Subjective Physical Therapy Visit Type Type Treatment Note Visit Start Time 10:05 Visit Stop Time 10:40 Total Visit Minutes 35 Number of OUTSIDE MACHINIST APPRENTICE Visits 3 Physical Therapy Visit Comments Patient Comments Pt states that she hopes to go home today. Therapy Pain Assessment Pain When Pain Assessed At Rest Pain Present Pain Present Pain Reported Location Left Knee Intensity 4 Scale Used Numeric (1 - 10) M4 PT-IP Mobility and Gait Start: 03/23/18 17:14 Freq: NEEDED Status: Active Protocol: Document 03/25/18 10:40 GGD (Rec: 03/25/18 12:18 GGD [email or web address]) PT-Transfer Assessment Sit to and From Stand Sit to and from Stand Standby Assistance Use of Upper Extremities Equipment Transfer Assistive Device Front Wheeled Walker Orthotic/Prosthetic Devices or Brace: No Transfers Transfer Destination Chair Transfer Ability Level of Assist Standby Assistance Comments Mobility Comments pt need min cues for transfer. Gait Assessment Gait Gait Assistance Required: Contact Guard Assist Distance (Feet) 110 Able to Maintain Weight Bearing Status Yes During Gait Assistive Devices Assistive Device Gait Belt Front Wheeled Walker Orthotic/Prosthetic Devices or Brace: No Gait Deviations General Gait Pattern Decreased Stride Length Decreased Feet Clearance Step-to Gait Factors Limiting Gait Function Factors Limiting Gait Function Decreased Strength Limited Range of Motion Pain Poor Balance Comments Gait Comments Pt need cues for weight bearing of left LE. Stair Climbing Assessment Evaluation Level of Assist On Stairs Contact Guard Assistance Devices Stair Climbing Assistive Devices Front Wheel Walker Technique/Endurance Stair Climbing Direction Ascend and Descend Stair Climbing Technique Step to Step Number of Steps Climbed 1 Query Text: Stair Climbing Set # Repetitions (reps) 2 Comments Stair Climbing Comments Pt need mod cues for stair mobility M5 PT-IP Objective Assessments Start: 03/23/18 17:14 Freq: NEEDED Status: Active Protocol: Document 03/23/18 14:44 (Rec: 03/23/18 18:11 [email or web address]) Orientation Orientation/Cognition Level of Alertness Alert Orientation Name Birthday Place Situation Safety Awareness Decreased Safety Awareness Gross Range of Motion Lower Extremity ROM Assessment Left Impaired Strength Lower Extremity Strength Assessment Left Impaired Comments Strength Comments LLE 4-/5; RLE 5/5 Sensation Assessment Sensation Gross Sensation WNL Comments Sensation Comments Intact to light touch on plantar surfaces of B feet M6 PT-IP Treatment Start: 03/23/18 17:14 Freq: NEEDED Status: Active Protocol: Document 03/25/18 10:40 GGD (Rec: 03/25/18 12:18 GGD [email or web address]) Physical Therapy Treatment Exercises Exercises Ankle Pumps Quad Sets Heel Slides Seated Knee Flexion/Extension M7 PT-IP Assessment and Plan Start: 03/23/18 17:14 Freq: NEEDED Status: Active Protocol: Document 03/25/18 10:40 GGD (Rec: 03/25/18 12:18 GGD [email or web address]) PT Summary Assessment and Plan Summary Assessment Summary Pt progressing with mobility. She need cues with mobility. She was stable with gait and stair mobility. She had improve with knee ROM with exercises and cues. She safe to d/c home with family when medically stable. Frequency of Treatment Frequency Of Treatment Twice a Day Treatment Plan Physical Therapy Treatment Plan Bed Mobility Training Transfer Training Gait Training Therapeutic Exercise Post Op Education Discharge Planning Hot or Cold Pack Recommendations To Nursing Amount of Assist Needed 1 Person Assist Discharge Recommendations PT Discharge Recommendations Home with Assistance
== END 2018-03-25 12:30 | disposition home or self-care (01) | DRG 470 ==
PROVIDERS: Admitting Provider Orthopaedic Surgery; PCP Physician Assistant; Visit Provider Orthopaedic Surgery
PROC: 0SRD0JZ Replacement of Left Knee Joint with Synthetic Substitute, Open Approach (ICD-10-PCS; CPT 27447; principal; 2018-03-23 07:45)
DX: M17.12 Unilateral primary osteoarthritis, left knee (principal); E11.9 Type 2 diabetes mellitus without complications; E66.9 Obesity, unspecified; Z68.39 Body mass index [BMI] 39.0-39.9, adult; Z79.84 Long term (current) use of oral hypoglycemic drugs
CPT/HCPCS: 36415; 73560; 82962; 85014; 85018; 90471; 90656; 97110; 97116; 97161; 97530; C1776; C9290; J0690; J2250; J2274; J2405; J2704; Q2038

== ENCOUNTER → 2019-04-18 12:30 | Outpatient (CLI) | payer MEDICARE, OTHER, SELFPAY ==
[2018-03-23 10:43] VITALS: BMI 39.4
--- NOTE | 2019-04-18 | DI.MRI.S_ITS ---
PROCEDURE: MR KNEE RT WO CON INDICATIONS: Unilateral primary osteoarthritis TECHNIQUE: Noncontrast sagittal PD fast spin echo and T2 fast spin echo with fat saturation, sagittal 3-D FLASH with fat saturation; coronal T1 spin echo and PD fast spin echo with fat saturation, and axial PD fast spin echo with fat saturation through the knee. COMPARISON: None FINDINGS: Image quality: Excellent. Menisci: There is medial extrusion of the medial meniscus. There is amorphous high signal intensity within the anterior horn, body, and posterior horn of the medial meniscus, demonstrating superior and inferior articular surface extension, indicating severe degenerative tearing. There is linear oblique and amorphous high signal intensity within the anterior horn, body, and posterior horn of the lateral meniscus, demonstrating inferior articular surface extension, indicating complex tearing. Cruciate ligaments: There is moderate T2 signal elevation within the posterior cruciate ligament, consistent with partial thickness tearing. Severe signal loss along the course of the anterior cruciate ligament is present, consistent with high-grade chronic partial thickness tearing. Medial structures: The medial collateral ligament appears intact. Moderate fluid signal deep to the medial collateral ligament. Visualized portions of the pes anserinus tendons appear normal. No abnormal bursal fluid. Lateral structures: The lateral collateral ligament, long and short heads of the biceps femoris tendon appear intact. The popliteus tendon appears normal. Iliotibial band appears normal. Anterior structures: The quadriceps and patellar tendons appear intact. Patellar alignment is normal. No femoral trochlear dysplasia or ventral trochlear prominence. No edema in the infrapatellar fat pad. Bones and cartilage: No bone marrow contusions or fractures. There is moderate or compartmental perihepatic osteophyte formation. Severe articular cartilage loss diffusely overlies the weightbearing aspects of the medial femoral condyle and medial tibial plateau. There is moderate to severe articular cartilage loss overlying the weightbearing aspects of the lateral femoral condyle and lateral tibial plateau. Severe articular cartilage loss overlies the medial patellar facet. Moderate articular cartilage loss overlies the lateral patellar facet. Joint space: There is a moderate knee joint effusion and a small Miles's cyst. There are multiple intra-articular loose body is present, largest of which is in the posterior central knee joint, measuring 9 mm diameter. Normal appearing synovial plicae are incidentally noted. IMPRESSION: 1. Severe tricompartmental osteoarthritis with associated articular cartilage loss. 2. Medial and lateral meniscal tearing. 3. Partial-thickness tearing of the anterior and posterior cruciate ligaments. 4. Medial collateral and bursitis. 5. Knee joint effusion and intra-articular loose bodies. Dictated by: Geno Echevarria M.D. on 04/18/2019 at 14:23 Approved by: Geno Echevarria M.D. on 04/18/2019 at 14:31
== END ==
PROVIDERS: PCP Physician Assistant; Visit Provider Orthopaedic Surgery
DX: M17.11 Unilateral primary osteoarthritis, right knee (principal); S83.271A Complex tear of lateral meniscus, current injury, right knee, initial encounter; S83.241A Other tear of medial meniscus, current injury, right knee, initial encounter; S83.511A Sprain of anterior cruciate ligament of right knee, initial encounter; S83.521A Sprain of posterior cruciate ligament of right knee, initial encounter; M70.51 Other bursitis of knee, right knee; M25.461 Effusion, right knee
CPT/HCPCS: 73721

== ENCOUNTER 2019-05-24 14:56 | Observation (INO) | payer MEDICARE, OTHER, SELFPAY ==
[2018-03-23 10:43] VITALS: BMI 39.4
[2019-05-16 11:41] VITALS: BMI 38.9
[2019-05-23] VITALS (12 sets, daily range): BP systolic 106–145; BP diastolic 44–89; PULSE 69–101; RESP 11–18; TEMP 36.1–37.1; O2SAT 89–97; BMI 38.9
--- NOTE | 2019-05-23 09:44 | DI.RAD.S_ITS ---
PROCEDURE: XR KNEE RT 1TO2V INDICATIONS: Postop right total knee TECHNIQUE: 2 view(s) of the knee acquired. COMPARISON: , CR, XR KNEE LT 1TO2V, 03/23/2018, 10:14. FINDINGS: Bones: Patient is status post knee joint arthroplasty. Hardware components are in expected positions. Visualized bony structures are intact. Soft tissues: Overlying postoperative changes are noted. IMPRESSION: Normal alignment after right total knee arthroplasty. Dictated by: Isaias Larsen M.D. on 05/23/2019 at 15:01 Approved by: Isaias Larsen M.D. on 05/23/2019 at 15:02
--- NOTE | 2019-05-23 10:30 | PM.PREOP ---
Pre-operative Note Interval Note History & Physical reviewed/Exam performed by Physician: Yes Changes to H&P: No
--- NOTE | 2019-05-23 10:30 | PM.OP.1 ---
Operative Date/Time/Diagnoses Date of procedure: 05/23/19 Time of procedure: 13:32 Pre-op diagnosis: Right knee osteoarthritis Post-op diagnosis: same Procedure & Clinicians Procedure: Right total knee arthroplasty Same procedure as scheduled: Yes Indications: The patient presents today for total knee arthroplasty after failure of conservative treatment. The nature of the procedure including the risks and benefits, alternatives, postoperative course and expected outcome were discussed and all questions answered. Consent was obtained. Operative site confirmed and marked. Surgeon: Zay Silva Plastics Supervisor: Madi Nelson Anesthesia Type: General, Spinal and Local Operative Notes Findings: There is severe osteoarthritis with varus alignment. The patient had a large leg which made exposure difficult. After the vision our cuts the knee was still stiff in both flexion and extension requiring another 2 mm of tibia to be resected. This even the gaps. No specific ligamentous balancing was needed other than routine exposure and osteophyte removal. After trying with the implants the knee balanced well but there was then a little increased medial compared to lateral laxity. The patella was quite thin initially just about 21 or 22 mm. I attempted to take a 7-8 mm cut for the thinner prosthesis. However the cut ended up being approximately 9 mm. Patellar thickness was just 12 mm after resection. Patellar tracking was excellent. Closure Type: primary Specimen(s): none sent Prosthetic devices, grafts, tissues, transplants, or devices: [employer] BCS: 3 femoral component, 2 tibial component, 9 mm BCS polyethylene tray and 29 x 9 mm round patella Applied: implant(s) Blood products transfused: none Tourniquet time (min): 60 Procedure in detail: The patient was taken to the operative suite and placed under general and spinal anesthesia. The patient was given prophylactic antibiotics prior to surgery. The patient was also given tranexamic acid, 1 g, just prior to surgery for postoperative hemostasis. The lateral knee was prepped and the joint injected with 20 mL of 1% Lidocaine with epinephrine. The knee was then prepped and draped in usual sterile fashion. The leg was exsanguinated with an Esmarch dressing and the tourniquet raised to 275 torr. A 15 cm anterior incision was made. Next a medial trivector arthrotomy was made. The extensor mechanism was marked to ensure accurate repair. Initial exposing dissection was carried out medially and laterally. The knee was then extended and the patellar thickness was measured and a cut made trying to removing approximately 7-8 mm of bone with a goal of restoring normal patellar thickness. More like 9 mm was taken. This left the remaining patella approximately 12 mm in thickness. The patella was then sized and drilled. Some excess lateral bone was excised and the patellofemoral ligament released. The knee was then flexed and the [employer] femoral guide was placed. The anterior pins were placed and the distal rotation holes drilled. The distal cutting guide was placed and the templated distal femoral cut was made. The templating cutting block was then placed and the anterior, posterior and chamfer cuts made. The [employer] tibial guide was placed and the alignment checked along the axis of the proximal tibial with a durga. The proximal tibial cut was then made with an oscillating saw. All meniscus and bony debris was then removed. Flexion extension gaps were checked. The knee was still tight both in flexion and extension. Another 2 mm of the tibia was resected which evened out the gaps. No specific balancing was required other than routine exposure and removal of osteophytes. The soft tissues were then injected with a combination of 20 mL of half percent Marcaine with epinephrine and 20 mL of Exparel. The trial components were then placed. The knee went into full extension and flexion beyond 120?. There was good medial- lateral balance throughout motion. The knee was just slightly looser medially than laterally. Patellar tracking was excellent. The trial components were removed and size is confirmed for the final implants. The knee was then exsanguinated with an Esmarch dressing and the tourniquet reapplied for cementing. The knee was cleansed with Pulsavac irrigation and dried. The final components were cemented in with high viscosity vacuum mixed bone cement with antibiotics. The knee was held in extension and the patellar clamp until the cement had adequately cured. The knee was then irrigated with dilute Betadine solution. The extensor mechanism was closed with 5 interrupted #1 Vicryl sutures in 90 degrees of flexion. The joint was then injected with a combination of 1 g of tranexamic acid and 20 mL of quarter percent Marcaine with epinephrine. The subcutaneous tissue was closed with 2-0 Vicryl. The skin was closed with sivan and surgical adhesive. An Aquacel dressing and Lam wrap were then applied. Complications: none Post-operative Condition: stable Disposition: PACU Plan for aftercare: [facility] protocol for total knee arthroplasty.
[2019-05-23] MEDS: CELECOXIB 200 MG CAPSULE PO (11:07)
[2019-05-23] MEDS: PREGABALIN 75 MG CAPSULE PO (11:07)
[2019-05-23] MEDS: ACETAMINOPHEN 325 MG TABLET 975 MG PO (11:07)
[2019-05-23] MEDS: LACTATED RINGERS 1,000 ML 42 ML IV ×2 (11:08→13:28)
[2019-05-23] MEDS: CEFAZOLIN 2 GM/100 ML FROZ.PIGGY IV ×2 (12:00→20:23)
[2019-05-23] MEDS: LIDOCAINE 1% W/EPI 20 ML INJ (12:10)
[2019-05-23] MEDS: TRANEXAMIC ACID 1,000 MG VIAL 1000 MG INJ (12:15)
[2019-05-23] MEDS: BUPIVACAINE 0.25% W/ EPI (PF) 40 ML, BUPIVACAINE LIPOSOME 266 MG, SODIUM CHLORIDE 0.9% ... INJ (12:36)
[2019-05-23] MEDS: SODIUM CHLORIDE IRRIG SOLUTION 250 ML, POVIDONE-IODINE SPONGE STICKS 1 APPLIC IRR (12:37)
[2019-05-23] MEDS: BUPIVACAINE 0.25% W/ EPI (PF) 20 ML, TRANEXAMIC ACID 1,000 MG, SODIUM CHLORIDE 0.9% 10 ML INJ (12:37)
[2019-05-23] MEDS: ACETAMINOPHEN 325 MG TABLET 650 MG PO ×2 (16:18→20:26)
[2019-05-23] MEDS: IBUPROFEN 400 MG TABLET PO ×2 (16:18→20:26)
[2019-05-23] MEDS: LACTATED RINGERS 1,000 ML 125 ML IV ×2 (16:19→23:41)
--- NOTE | 2019-05-23 17:06 | SUR.PHASEI ---
Stable PACU stay, assumed care from DEANN Bautista. Report attempted RN unavailable at first, called when available pt then transported up and left with Dominique in stable condition.
[2019-05-23] MEDS: METFORMIN HCL 500 MG TABLET 1000 MG PO (20:27)
[2019-05-23] MEDS: ASPIRIN EC 81 MG TABLET PO (20:27)
--- NOTE | 2019-05-23 21:30 | PC.NURSE ---
Patient instructed to use IS/cough/deep breath; O2 RA=96%; ls clear; mild pain, or pressure to right knee; ice to knee applied; right leg elevated on pillow; c/m/s to RLE positive; ppp; bilateral calf-SCDs active; patient instructed regarding fall prevention and is using call light, as needed; bed alarm active; patient void in BSC
[2019-05-23] MEDS: OXYCODONE IR 5 MG TABLET 10 MG PO (22:03)
[2019-05-24] MEDS: OXYCODONE IR 5 MG TABLET 10 MG PO ×5 (00:44→21:15)
[2019-05-24] MEDS: IBUPROFEN 400 MG TABLET PO ×6 (00:44→20:27)
[2019-05-24] MEDS: CEFAZOLIN 2 GM/100 ML FROZ.PIGGY IV (04:02)
[2019-05-24 06:00] VITALS: BP 118/58; PULSE 70; RESP 18; TEMP 36.8; O2SAT 92
[2019-05-24 06:43] LABS: Hematocrit 32.5 % (36-46)
[2019-05-24] MEDS: ACETAMINOPHEN 325 MG TABLET 650 MG PO ×3 (08:27→20:26)
[2019-05-24] MEDS: METFORMIN HCL 500 MG TABLET 1000 MG PO ×2 (08:28→20:27)
[2019-05-24] MEDS: ASPIRIN EC 81 MG TABLET PO ×2 (08:28→20:28)
[2019-05-24 08:35] VITALS: BP 139/67; PULSE 77; RESP 17; TEMP 36.6; O2SAT 92
--- NOTE | 2019-05-24 09:07 | PM.PNPO.1 ---
Subjective Subjective Date Patient Seen: 05/24/19 Time Patient Seen: 09:08 Interval history: Patient's pain is [id number]. Denies fever chills. No nausea vomiting. She has not yet worked with physical therapy. Her daughter will be available to assist her home as of tomorrow. Exam Vital Signs (past 8 hours): - 05/24/19 06:00 05/24/19 08:35 Temperature 98.2 F 97.8 F Pulse Rate 70 77 Respiratory Rate 18 17 Blood Pressure 118/58 L 139/67 Pulse Oximetry 92 92 Oxygen Delivery Method Room Air Oxygen Flow Rate 0 Narrative Exam Narrative: Pleasant 78-year-old female resting comfortably in bed in no apparent distress. Right knee dressing is clean, dry and intact. Right leg is warm and dry. Motor functions intact. Sensation grossly intact to light touch. Objective Labs Result Diagrams: 05/24/19 06:35 Labs: Laboratory Results - last 24 hr 05/24/19 06:35 Hgb 11.0 L Hct 32.5 L Assessment & Plan Post-op Postoperative Procedures: Procedures Operation Date: 05/23/19 12:15 Actual Procedures Side Surgeon p Total Knee Arthroplasty Right Zay Silva MD Postop day 1 status post right total knee arthroplasty. Mobilize with physical therapy. Likely discharge home tomorrow. Quality VTE Deep Vein Thrombosis/Pulmonary Embolism Present on Admission: No
--- NOTE | 2019-05-24 11:40 | PT.IIE ---
Current Diagnoses Bilateral primary osteoarthritis of knee (05/23/19) Surgery Performed Operation Date: 05/23/19 12:15 Actual Procedures p Total Knee Arthroplasty(Right) - Zay Silva MD Surgical History (Last Updated 05/16/19 @ 12:10 by Elida Lin RN) History of delivery (Acute) Hx of arthroscopy of left knee (Acute 03/23/18) Hx of tonsillectomy (Acute) S/P ear surgery (Acute) Status post cataract extraction and insertion of intraocular lens of right eye (Acute) Status post laser cataract surgery of left eye (Acute ~02/2019) Medical History (Last Updated 05/16/19 @ 12:16 by Elida Lin RN) Achilles tendinitis (Acute) Diabetes (Acute) Diverticulitis (Acute ~10/2018) [place] (hard of hearing) (Acute) HTN (hypertension) (Acute) Physical Therapy Inpatient Evaluation/Re-Eval M1 PT/OT-IP Prior Functional Status Start: 05/24/19 08:49 Freq: NEEDED Status: Active Protocol: Document 05/24/19 11:16 AW (Rec: 05/24/19 11:40 AW [email or web address]) Medical Review Prior Functional Status Medical History Reviewed Yes Communication WNL Mobility and Gait Pt has been using a single trekking pole for all mobility since November 2018. Activities of Daily Living and IADL's Independent. Pt drives, does her own shopping, and meal prep Prior Functional Level (Other details) No falls within the past year. She is very proud that she can stand for an hour. She regularly attends exercises at her [facility] center. She had her left knee replaced last year and had a good recovery. Social History Household Members none Living Arrangements Apartment/Condo Number of Floors (Floors) One Floor Number of Stairs To Enter/Railing? 2 NATHANIEL without railing. They are single steps each followed by a landing. She will be able to use a walker or trekking pole with RAYON CONER on the other side. Home Environment High Toilet,Tub/Shower Home Equipment Front Wheel Walker,Tub Transfer Bench,Hand Held Shower,Grab Bars Near Toilet, Grab Bars In Shower Employment Status Retired Additional Social History Comment Pt lives alone but her daughter, Jailyn, is planning to live in with her at discharge until she is independently mobile with FWW. M2 PT-IP Current Condition Start: 05/24/19 08:49 Freq: NEEDED Status: Active Protocol: Document 05/24/19 11:16 AW (Rec: 05/24/19 11:40 AW [email or web address]) Physical Therapy Current Condition Current Condition Evaluation Date 05/24/19 Treatment Diagnosis s/p R TKA, difficulty in walking Onset Date 05/23/19 Weight Bearing Status Weight Bearing Status Weight Bear as Tolerated M3 PT-IP Subjective Start: 05/24/19 08:49 Freq: NEEDED Status: Active Protocol: Document 05/24/19 11:16 AW (Rec: 05/24/19 11:40 AW [email or web address]) Subjective Physical Therapy Visit Type Type Initial Evaluation Visit Start Time 09:17 Visit Stop Time 10:03 Total Visit Minutes 46 Notes Pt's daughter, Jailyn, present during evaluation. Number of CAPPER MACHINE OPERATOR Visits 0 Physical Therapy Visit Comments Patient Comments Pt willing to work with PT Patient Goals To go home with family support Therapy Pain Assessment Pain When Pain Assessed During Mobility Pain Present Pain Present Pain Reported Location Left Knee Intensity 10 Scale Used 2/10 at rest; 10/10 with mobility Pain Management Techniques Apply Cold,Re-positioning, Timing of Activity with Medications M4 PT-IP Mobility and Gait Start: 05/24/19 08:49 Freq: NEEDED Status: Active Protocol: Document 05/24/19 11:16 AW (Rec: 05/24/19 11:40 AW [email or web address]) PT-Bed Mobility Assessment Supine to Sit Supine to Sit Contact Guard Assistance Scooting Scooting to Edge of Bed Contact Guard Assistance PT-Transfer Assessment Sit to and From Stand Sit to and from Stand Minimal Assistance,1 Person Assistance,Use of Upper Extremities Equipment Transfer Assistive Device Bed Rail,Gait Belt,Front Wheeled Walker Orthotic/Prosthetic Devices or Brace: No Transfers Transfer Destination Chair Transfer Technique pt ambulated with FWW Transfer Ability Level of Assist Minimal Assistance,1 Person Assistance,Use of Upper Extremities Comments Mobility Comments Pt required CGA to min assist to complete supine to sit transfer with therapist supporting the operative leg. She was able to sit EOB without UE support and without report of lightheadedness or nausea. She completed sit to stand with FWW min A x 1 using bed cane for pushoff. Transfer to chair was accomplished with min A x 1 and cues for sequencing. Gait Assessment Gait Gait Assistance Required: Contact Guard Assist Distance (Feet) 25 Able to Maintain Weight Bearing Status Yes During Gait Assistive Devices Assistive Device Gait Belt,Front Wheeled Walker Orthotic/Prosthetic Devices or Brace: No Gait Deviations General Gait Pattern Antalgic,Decreased Stride Length,Decreased Feet Clearance,Flexed Trunk,Step-to Gait Factors Limiting Gait Function Factors Limiting Gait Function Decreased Activity Tolerance, Decreased Strength,Pain,Poor Balance Comments Gait Comments Pt exited the left side of the bed and ambulated to the window + back to the chair using FWW CGA. She required max cues for weightbearing on the RLE but continued to primarily toe-touch weightbear , reporting 10/10 pain. Stair Climbing Assessment Comments Stair Climbing Comments Not assessed. PT-Balance Assessment Sitting Balance and Reactions Static Sitting Balance Ability Good Dynamic Sitting Balance Ability Good Standing Balance and Reactions Static Standing Balance Ability Fair Dynamic Standing Balance Ability Fair Device Used FWW M5 PT-IP Objective Assessments Start: 05/24/19 08:49 Freq: NEEDED Status: Active Protocol: Document 05/24/19 11:16 AW (Rec: 05/24/19 11:40 AW [email or web address]) Orientation Orientation/Cognition Level of Alertness Alert Orientation Name,Day of Week,Place, Situation Language Function Ability No Deficits Noted Safety Awareness Understands Safety Issues Memory Description No Deficits Noted Gross Range of Motion Upper Extremity ROM Assessment Within Functional Limits Lower Extremity ROM Assessment Right Impaired Strength Upper Extremity Strength Assessment Within Functional Limits Lower Extremity Strength Assessment Bilaterally Impaired Hip L 4-/5 Knee L 5/5 Ankle B 4+/5 Coordination Assessment Gross Coordination Gross Coordination WNL Sensation Assessment Sensation Gross Sensation WNL M6 PT-IP Treatment Start: 05/24/19 08:49 Freq: NEEDED Status: Active Protocol: Document 05/24/19 11:16 AW (Rec: 05/24/19 11:40 AW [email or web address]) Physical Therapy Treatment Exercises Exercises Ankle Pumps,Gluteal Sets,Quad Sets,Heel Slides Education Education Provided Precautions,Weight Bearing Status,Post-Op Packet,Safety Other Treatments Other Treatment Performed PT educated pt on plan of care , post-op exercises, weightbearing status, and safe use of FWW. M7 PT-IP Assessment and Plan Start: 05/24/19 08:49 Freq: NEEDED Status: Active Protocol: Document 05/24/19 11:16 AW (Rec: 05/24/19 11:40 AW [email or web address]) PT Summary Assessment and Plan Potential Rehabilitation Potential Good Status of Condition at Evaluation Evolving Summary Impairments Pain,Strength,Balance,Bed Mobility,Transfers,Gait, Activity Tolerance Assessment Summary Maddy is a 78 yo woman seen for PT evaluation on POD1 following R TKA. Prior to admission, pt was modified independent for all mobility with use of a single trekking pole. Upon evaluation today, pt presents with bilateral lower extremity strength deficits, impaired standing balance, and toe-touch weightbearing in gait in spite of cues to encourage greater WB. With improved pain management, PT anticipates pt will meet the functional goals of this plan of care and be safe to discharge home with her daughter assisting and with outpatient PT. Goals Bed Mobility Goal Standby Assistance Transfer Goal Standby Assistance,Front Wheeled Walker Gait Goal Standby Assistance,Front Wheel Walker Gait Distance 150 Other Goals up/down platform step two times with FWW CGA or with trekking pole + RAYON CONER. Days to Meet Goals 3 Frequency of Treatment Frequency Of Treatment Twice a Day Treatment Plan Physical Therapy Treatment Plan Bed Mobility Training,Transfer Training,Gait Training, Therapeutic Exercise,Balance Retraining,Post Op Education, Discharge Planning,Hot or Cold Pack,Neuromuscular Re-ed, Coordination Retraining,Manual Therapy Other Recommendations and Next Treatment progress gait training/ Focus distance; trial platform step if able Recommendations To Nursing Amount of Assist Needed 1 Person Assist Discharge Recommendations PT Discharge Recommendations Home with Assistance, Outpatient PT
[2019-05-24 13:57] VITALS: BP 140/62; PULSE 76; RESP 17; TEMP 36.8; O2SAT 92
--- NOTE | 2019-05-24 14:09 | CM.IDA ---
Initial DCP Assessment Note: Pt is a 78 yo female, resident of [place]. Pt is POD#1 for knee surgery w/ Dr Silva PCP: Anais Hedrick Payer: Medicare/[employer] Reviewed chart. Met w/pt and explained SW role. Pt expects to DC home tomorrow or Tuesday w/her dtr Jailyn to assist as needed. PT has cleared pt for return home w/outpt PT . Encouraged pt to ask her dtr to arrive tomorrow AM or PM for cg training w/ the therapy team and pt agreed. P: DC home w/family via pov and outpt PT expected, no barriers identified today. PEDRO Cohen Discharge Planning/Care Management Document 05/24/19 13:57 KIRSTIN (Rec: 05/24/19 13:59 [id number]) Discharge Planning Assessment Assigned Party Host/Hostess PEDRO Wheeler DPOA/Assigned Designee Name Jailyn Holloway dtr Contact Information [phone] Advance Directives? Yes Advance Directives on File No History Provided By Patient,Medical Record Prior Living Arrangements Apartment/Condo Household Members none Type of transporation used prior to Drives own vehicle admit Independent with ADL's Yes Is patient alert and oriented? Yes Patient/Family Preference OP PT Therapy Barriers to Discharge No Discharge Plan Home Transportation Arrangement family Referrals Initiated None needed Additional Comment At this time Review Status In Process
[2019-05-24] MEDS: TRIAMTERENE/HCTZ 37.5/25 TABLET 1 CAP PO (14:29)
--- NOTE | 2019-05-24 14:58 | PT.IPTN ---
Current Diagnoses Bilateral primary osteoarthritis of knee (05/23/19) Surgery Performed Operation Date: 05/23/19 12:15 Actual Procedures p Total Knee Arthroplasty(Right) - Zay Silva MD Physical Therapy Treatment Note M2 PT-IP Current Condition Start: 05/24/19 08:49 Freq: NEEDED Status: Active Protocol: Document 05/24/19 11:16 AW (Rec: 05/24/19 11:40 AW [email or web address]) Physical Therapy Current Condition Current Condition Evaluation Date 05/24/19 Treatment Diagnosis s/p R TKA, difficulty in walking Onset Date 05/23/19 Weight Bearing Status Weight Bearing Status Weight Bear as Tolerated M3 PT-IP Subjective Start: 05/24/19 08:49 Freq: NEEDED Status: Active Protocol: Document 05/24/19 14:34 ERNIE (Rec: 05/24/19 15:20 ERNIE [id number]) Subjective Physical Therapy Visit Type Type Treatment Note Visit Start Time 14:34 Visit Stop Time 14:58 Total Visit Minutes 24 Notes Treatment supervised by VANIA Orr. Number of SAFETY ASSISTANT Visits 1 Physical Therapy Visit Comments Patient Comments Pt willing to work with PT Patient Goals To go home with family support Therapy Pain Assessment Pain When Pain Assessed At Rest Pain Present Pain Present Pain Reported Location Left Knee Intensity 5 Scale Used Numeric (1 - 10) Pain Behaviors Guarding,[place] Pain Management Techniques Apply Cold,Elevation,Re- positioning,Timing of Activity with Medications M4 PT-IP Mobility and Gait Start: 05/24/19 08:49 Freq: NEEDED Status: Active Protocol: Document 05/24/19 14:34 ERNIE (Rec: 05/24/19 15:20 ERNIE [id number]) PT-Bed Mobility Assessment Scooting Scooting to Edge of Bed Contact Guard Assistance PT-Transfer Assessment Sit to and From Stand Sit to and from Stand Minimal Assistance,1 Person Assistance,Use of Upper Extremities Equipment Transfer Assistive Device Gait Belt,Front Wheeled Walker Orthotic/Prosthetic Devices or Brace: No Transfers Transfer Destination Chair Transfer Technique pt ambulated with FWW Transfer Ability Level of Assist Minimal Assistance,1 Person Assistance,Use of Upper Extremities Comments Mobility Comments Pt was in reclined in chair upon arrival from PT. Pt reported 5/10 pain at rest. Pt performed ankle pumps, quad sets, and AAROM knee flexion before sitting upright. Once upright, pt instructed in heel slides and knee extension. CGA for scooting to edge of chair, and Min A for sit<> stand from chair w/ FWW and cues to push up from chair. CGA for stand<>sit back in chair w/ cues to reach back and slowly lower into chair. Pt left reclined in chair w/ all needs in reach and ice on knee. Gait Assessment Gait Gait Assistance Required: Contact Guard Assist Distance (Feet) 30 Able to Maintain Weight Bearing Status Yes During Gait Assistive Devices Assistive Device Gait Belt,Front Wheeled Walker Orthotic/Prosthetic Devices or Brace: No Gait Deviations General Gait Pattern Antalgic,Decreased Stride Length,Decreased Feet Clearance,Flexed Trunk,Step-to Gait,Wide Based Gait Factors Limiting Gait Function Factors Limiting Gait Function Decreased Activity Tolerance, Decreased Strength,Pain,Poor Balance Comments Gait Comments Pt was able to weight shift onto R LE in preparation for ambulation. Pt first demonstrated step-to gait pattern, but was able to perform step through with frequent cuing for normalized gait. Pt has decreased stride length and feet clearance as well as a wide base of support when walking, due to pain, weakness, lack of ROM and poor balance. Stair Climbing Assessment Comments Stair Climbing Comments Not assessed. PT-Balance Assessment Sitting Balance and Reactions Static Sitting Balance Ability Good Dynamic Sitting Balance Ability Good Standing Balance and Reactions Static Standing Balance Ability Fair Dynamic Standing Balance Ability Fair Device Used FWW M5 PT-IP Objective Assessments Start: 05/24/19 08:49 Freq: NEEDED Status: Active Protocol: Document 05/24/19 11:16 AW (Rec: 05/24/19 11:40 AW [email or web address]) Orientation Orientation/Cognition Level of Alertness Alert Orientation Name,Day of Week,Place, Situation Language Function Ability No Deficits Noted Safety Awareness Understands Safety Issues Memory Description No Deficits Noted Gross Range of Motion Upper Extremity ROM Assessment Within Functional Limits Lower Extremity ROM Assessment Right Impaired Strength Upper Extremity Strength Assessment Within Functional Limits Lower Extremity Strength Assessment Bilaterally Impaired Hip L 4-/5 Knee L 5/5 Ankle B 4+/5 Coordination Assessment Gross Coordination Gross Coordination WNL Sensation Assessment Sensation Gross Sensation WNL M6 PT-IP Treatment Start: 05/24/19 08:49 Freq: NEEDED Status: Active Protocol: Document 05/24/19 14:34 ERNIE (Rec: 05/24/19 15:20 ERNIE [id number]) Physical Therapy Treatment Exercises Exercises Ankle Pumps,Quad Sets,Heel Slides,Seated Knee Flexion/ Extension Education Education Provided Precautions,Weight Bearing Status,Post-Op Packet,Safety Other Treatments Other Treatment Performed Pt educaton provided for stair training in the future. M7 PT-IP Assessment and Plan Start: 05/24/19 08:49 Freq: NEEDED Status: Active Protocol: Document 05/24/19 14:34 ERNIE (Rec: 05/24/19 15:20 ERNIE [id number]) PT Summary Assessment and Plan Potential Rehabilitation Potential Good Status of Condition at Evaluation Evolving Summary Impairments Pain,Strength,Balance,Bed Mobility,Transfers,Gait, Activity Tolerance Assessment Summary Pt was able to perform LE strengthening exercises including ankle pumps, heel slides, quad sets, and knee flexion and extension. CGA for scooting to edge of chair, Min A for sit<>stand and stand <>sit back in chair w/ cues for hand placement. Performed weight shifting prior to gait, ambulated ~30 ft to hallway and back to chair. Gait pattern improved from step to to step through with frequent cues for normalized gait. Pt educated on leg sequencing for stair climbing in future. Goals Bed Mobility Goal Standby Assistance Transfer Goal Standby Assistance,Front Wheeled Walker Gait Goal Standby Assistance,Front Wheel Walker Gait Distance 150 Other Goals up/down platform step two times with FWW CGA or with trekking pole + SMALL ELECTRIC ENGINE TECHNICIAN. Days to Meet Goals 3 Frequency of Treatment Frequency Of Treatment Twice a Day Treatment Plan Physical Therapy Treatment Plan Bed Mobility Training,Transfer Training,Gait Training, Therapeutic Exercise,Balance Retraining,Post Op Education, Discharge Planning,Hot or Cold Pack,Neuromuscular Re-ed, Coordination Retraining,Manual Therapy Other Recommendations and Next Treatment progress gait training/ Focus distance; trial platform step if able Recommendations To Nursing Amount of Assist Needed 1 Person Assist Discharge Recommendations PT Discharge Recommendations Home with Assistance, Outpatient PT
[2019-05-24 16:11] VITALS: BP 152/63; PULSE 76; RESP 18; TEMP 37.1; O2SAT 94
[2019-05-24] MEDS: ONDANSETRON 4 MG ODT PO (17:46)
[2019-05-24 20:35] VITALS: BP 141/77; PULSE 79; RESP 17; TEMP 37.2; O2SAT 95
[2019-05-25] MEDS: IBUPROFEN 400 MG TABLET PO ×2 (00:58→06:33)
[2019-05-25 01:10] VITALS: BP 129/59; PULSE 93; RESP 16; TEMP 36.3; O2SAT 93
[2019-05-25 06:00] VITALS: BP 120/62; PULSE 89; RESP 16; TEMP 36.4; O2SAT 92
[2019-05-25] MEDS: OXYCODONE IR 5 MG TABLET 10 MG PO ×2 (07:20→13:37)
[2019-05-25] MEDS: ACETAMINOPHEN 325 MG TABLET 650 MG PO (07:34)
[2019-05-25] MEDS: METFORMIN HCL 500 MG TABLET 1000 MG PO (07:35)
[2019-05-25] MEDS: ASPIRIN EC 81 MG TABLET PO (07:38)
[2019-05-25] MEDS: TRIAMTERENE/HCTZ 37.5/25 TABLET 1 CAP PO (07:39)
--- NOTE | 2019-05-25 07:42 | PM.DS.1 ---
History of Present Illness History of Present Illness Date Patient Seen: 05/25/19 Time Patient Seen: 07:42 Chief complaint: [id number] Narrative: The patient presents today for total knee arthroplasty after failure of conservative treatment. The nature of the procedure including the risks and benefits, alternatives, postoperative course and expected outcome were discussed and all questions answered. Consent was obtained. Operative site confirmed and marked. Postop day 2 status post right total knee arthroplasty. Patient is doing well. Mild to moderate pain in right knee. Mobilizing well with PT. Eating and voiding without difficulty or assistance. Pain well controlled with oxycodone, tylenol and ibuprofen. Patient denies fever, chills, chest pain, shortness of breath. Discharge Providers Provider Date of admission: 05/23/19 09:58 Discharge Date: 05/25/19 Primary care physician: Anais Hedrick PA-C Consults: 05/23/19 15:13 Consult to Discharge Planning Routine Comment: Consult to Physical Therapy Evaluate & Treat Comment: Physician Instructions: postop TKA protocol Consult to Respiratory Therapy Evaluate & Treat Comment: Physician Instructions: Evaluate and treat Discharge provider: Ruiz Gonzalez PA-C Summary Hospital Course Discharge Diagnosis: s/p right total knee arthroplasty achilles tendinitis diabetes mellitus diverticulitis hard of hearing hypertension Hospital Course: Patient admitted to hospital s/p right total knee arthroplasty with Dr. Silva. Post op day 2 patient was ready for discharge home. Hospital course was unremarkable. Patient was mobilizing with PT prior to discharge. Patient was eating and voiding without difficulty or assistance prior to discharge. Pain was well controlled with oxycodone, ibuprofen and tylenol. Patient has oxycodone prescription at home. Patient will use ASA 81mg BID for DVT prophylaxis. Status at Discharge Cognitive/behavioral status at discharge: oriented Functional status at discharge: uses cane/walker Overall status at discharge: patient is progressing back to baseline Time Spent with Patient Time spent: Less than 30 minutes Exam Vital Signs (past 8 hours): - 05/25/19 01:10 05/25/19 06:00 Temperature 97.4 F L 97.6 F Pulse Rate 93 H 89 Respiratory Rate 16 16 Blood Pressure 129/59 L 120/62 Pulse Oximetry 93 92 Oxygen Delivery Method Room Air Oxygen Flow Rate 0 Narrative Exam Narrative: 78 year old female is sitting comfortably in chair, in no apparent distress. A&Ox3. Dressing CDI on right knee. Sensory function grossly intact to light touch in LE b/l. Dorsalis pedis 2+ bl. Capillary refill <2sec b/l. Able to actively dorsiflex/plantar flex bl. Objective Labs Result Diagrams: 05/24/19 06:35 Discharge Plan Discharge Plan Patient Disposition: Home Discharge orders & Medications Prescriptions: New acetaminophen [Tylenol Extra Strength] 500 mg tablet 500 mg PO Q4H PRN (Reason: pain (scale score 1-3)) Qty: 60 RF: 0 meloxicam [Mobic] 15 mg tablet 15 mg PO DAILY PRN (Reason: inflammation) Qty: 30 RF: 0 Continued metformin 500 mg Tablet 1,000 mg PO BID RF: 0 triamterene-hydrochlorothiazid 37.5-25 mg Capsule 1 cap PO DAILY RF: 0 Changed aspirin 81 mg tablet,delayed release (DR/EC) 81 mg PO BID Qty: 0 RF: 0 Discontinued ibuprofen [Advil] 200 mg Tablet 400 mg PO Q6H PRN (Reason: Pain) RF: 0 Follow up/Referrals: Zay Silva MD [Physician] - Anais Hedrick PA-C [Primary Care Provider] - Diet/Activity/Treatments Diet: Carb-consistent/Diabetic Activity: weight bearing as tolerated. follow [facility]path total knee arthroplasty precautions Cold/Heat Therapy: continue cold/heat therapy as needed Skin/Wound/Dressing Care Report to your healthcare provider any signs of infection, such as:: chills, fever, increased pain, unusual drainage and unusual redness Dressing: keep dressing dry. can use in shower, do not soak (e.g. bath) if saturated contact office for dressing change. Visit Report/Discharge Packet Instructions: DI for Knee Replacement, DI for Constipation, How to Prevent Falls Stand Alone Forms: Surgery Discharge Discharge Data Primary Care Provider: Anais Hedrick Attending Provider: Zay Silva Admit Date/Time: 05/24/19 14:56 Discharges patient from system. Discharge Date/Time: 05/25/19 14:46 Quality VTE Deep Vein Thrombosis/Pulmonary Embolism Present on Admission: No
[2019-05-25 09:25] VITALS: BP 155/58; PULSE 82; RESP 17; TEMP 36.4; O2SAT 92
[2019-05-25] MEDS: ONDANSETRON 4 MG ODT PO (10:24)
--- NOTE | 2019-05-25 12:39 | PC.NURSE ---
@1215 message left with Surgical Gi Physician regarding patient's request to stay an extra night; message also left with INCIDENT RESPONSE ENGINEER.
--- NOTE | 2019-05-25 13:22 | PT.IPTN ---
Current Diagnoses Bilateral primary osteoarthritis of knee (05/23/19) Surgery Performed Operation Date: 05/23/19 12:15 Actual Procedures p Total Knee Arthroplasty(Right) - Zay Silva MD Physical Therapy Treatment Note M2 PT-IP Current Condition Start: 05/24/19 08:49 Freq: NEEDED Status: Active Protocol: Document 05/24/19 11:16 AW (Rec: 05/24/19 11:40 AW [id number]) Physical Therapy Current Condition Current Condition Evaluation Date 05/24/19 Treatment Diagnosis s/p R TKA, difficulty in walking Onset Date 05/23/19 Weight Bearing Status Weight Bearing Status Weight Bear as Tolerated M3 PT-IP Subjective Start: 05/24/19 08:49 Freq: NEEDED Status: Active Protocol: Document 05/25/19 10:18 JG (Rec: 05/25/19 11:33 JG [id number]) Subjective Physical Therapy Visit Type Type Treatment Note Visit Start Time 10:18 Visit Stop Time 11:09 Total Visit Minutes 51 Notes Treatment led by SPT Mila, supervised by PT Agapito. Daughter Jailyn and son in law Bjorn present for treatment. Number of MANAGER SPEECH Visits 0 Physical Therapy Visit Comments Patient Comments I still feel nervous about walking because it hurts to put weight on my R leg. I'm a little nauseous today. Patient Goals To go home with family support Therapy Pain Assessment Pain When Pain Assessed During Mobility Pain Present Pain Present Pain Reported Location Left Knee Intensity 5 Scale Used Numeric (1 - 10) Pain Behaviors Wincing Pain Management Techniques Apply Cold,Distraction,Timing of Activity with Medications M4 PT-IP Mobility and Gait Start: 05/24/19 08:49 Freq: NEEDED Status: Active Protocol: Document 05/25/19 10:18 JG (Rec: 05/25/19 11:33 JG [id number]) PT-Bed Mobility Assessment Supine to Sit Supine to Sit Standby Assistance Scooting Scooting to Edge of Bed Standby Assistance PT-Transfer Assessment Sit to and From Stand Sit to and from Stand Contact Guard Assistance,Use of Upper Extremities Equipment Transfer Assistive Device Gait Belt,Front Wheeled Walker Orthotic/Prosthetic Devices or Brace: No Transfers Transfer Destination Chair,Wheelchair Transfer Technique ambulated with FWW Transfer Ability Level of Assist Contact Guard Assistance,Use of Upper Extremities Comments Mobility Comments Pt sitting up in bed at start of treatment, daughter Jailyn at bed side. Pt required no more than SBA with cuing to utilized gait belt to help move R LE during bed mobility. Pt able to sit to stand with no more than CGA. Pt ambulated for stair training and returned to chair in room. Able to sit to/from stand to chair with CGA and cuing to use armrests. Completed caregiver training with daughter Jailyn who was able to appropriately cue pt during mobility. Pt left in chair with call light and needs within reach. Gait Assessment Gait Gait Assistance Required: Contact Guard Assist Distance (Feet) 40 Able to Maintain Weight Bearing Status Yes During Gait Assistive Devices Assistive Device Gait Belt,Front Wheeled Walker Orthotic/Prosthetic Devices or Brace: No Gait Deviations General Gait Pattern Antalgic,Decreased Stride Length,Decreased Feet Clearance,Lateral Trunk Lean, Step-to Gait Factors Limiting Gait Function Factors Limiting Gait Function Decreased Activity Tolerance, Decreased Strength,Difficulty Following Directions,Limited Range of Motion,Pain,Poor Balance Comments Gait Comments Pt ambulated ~40 ft to stairs for training and back to room. Pt required no more than CGA with use of FWW. Educated pt to use smaller steps to allow for smoother, step through gait pattern. Gait improved with cuing but pt requires frequent reminders. Daughter Jailyn able to provide appropriate support and cuing for pt. Stair Climbing Assessment Evaluation Level of Assist On Stairs Contact Guard Assistance Devices Stair Climbing Assistive Devices Front Wheel Walker Technique/Endurance Stair Climbing Direction Ascend and Descend Stair Climbing Technique Step to Step Number of Steps Climbed 1 Stair Climbing Set # Repetitions (reps) 3 Comments Stair Climbing Comments Pt completed stair training on platform step. Educated pt to use up with the good, down witht the bad for stair climbing. First round performed with PT support, CGA with max cuing and encouragement. Educated daughter on how to support pt with stair climbing and next two rounds completed with daughter. Pt cont to need no more than CGA. Pt has good safety awareness but needs max encouragement d/t nervousness about stair climbing. Daughter provides good support and cuing for pt throughout stair training. PT-Balance Assessment Sitting Balance and Reactions Static Sitting Balance Ability Good Dynamic Sitting Balance Ability Good Standing Balance and Reactions Static Standing Balance Ability Fair Dynamic Standing Balance Ability Fair Device Used FWW M5 PT-IP Objective Assessments Start: 05/24/19 08:49 Freq: NEEDED Status: Active Protocol: Document 05/24/19 11:16 AW (Rec: 05/24/19 11:40 AW [email or web address]) Orientation Orientation/Cognition Level of Alertness Alert Orientation Name,Day of Week,Place, Situation Language Function Ability No Deficits Noted Safety Awareness Understands Safety Issues Memory Description No Deficits Noted Gross Range of Motion Upper Extremity ROM Assessment Within Functional Limits Lower Extremity ROM Assessment Right Impaired Strength Upper Extremity Strength Assessment Within Functional Limits Lower Extremity Strength Assessment Bilaterally Impaired Hip L 4-/5 Knee L 5/5 Ankle B 4+/5 Coordination Assessment Gross Coordination Gross Coordination WNL Sensation Assessment Sensation Gross Sensation WNL M6 PT-IP Treatment Start: 05/24/19 08:49 Freq: NEEDED Status: Active Protocol: Document 05/25/19 10:18 JG (Rec: 05/25/19 11:33 JG [id number]) Physical Therapy Treatment Education Education Provided Safety Other Treatments Other Treatment Performed Educated pt on stair climbing technique. Completed caregiver training with [employer], who was able to safely support and cue pt throughout session. M7 PT-IP Assessment and Plan Start: 05/24/19 08:49 Freq: NEEDED Status: Active Protocol: Document 05/25/19 10:18 JG (Rec: 05/25/19 11:33 JG [id number]) PT Summary Assessment and Plan Potential Rehabilitation Potential Good Status of Condition at Evaluation Stable Summary Impairments Pain,Strength,Balance,Bed Mobility,Transfers,Gait, Activity Tolerance Progress Towards Goals Progressing Toward Goals Assessment Summary Pt required no more than CGA throughout session. Pt is highly anxious about mobility and return home and requires max cuing and encouragement. Completed caregiver training with [employer] and she provided good support for pt throughout session. Pt is progressing well towards goals and is safe for d/c to home with caregiver support once medically cleared. Goals Bed Mobility Goal Standby Assistance Transfer Goal Standby Assistance,Front Wheeled Walker Gait Goal Standby Assistance,Front Wheel Walker Gait Distance 150 Other Goals up/down platform step two times with FWW CGA or with trekking pole + BANK OFFICER. Days to Meet Goals 3 Frequency of Treatment Frequency Of Treatment Twice a Day Treatment Plan Physical Therapy Treatment Plan Bed Mobility Training,Transfer Training,Gait Training, Therapeutic Exercise,Balance Retraining,Post Op Education, Discharge Planning,Hot or Cold Pack,Neuromuscular Re-ed, Coordination Retraining,Manual Therapy Other Recommendations and Next Treatment progress gait training/ Focus distance review stair climbing Recommendations To Nursing Amount of Assist Needed 1 Person Assist Discharge Recommendations PT Discharge Recommendations Home with Assistance, Outpatient PT Note reviewed by Agapito PT
[2019-05-25 13:57] VITALS: BP 154/92; PULSE 87; RESP 17; TEMP 36.6; O2SAT 93
--- NOTE | 2019-05-25 15:32 | CM.DPNOTE ---
DC Note: DC order in place from ortho PA and therapy team has cleared pt for return home today w/family to assist and outpt PT for f/u. Family have participated in cg training today. This VALVE REPAIRER RECLAMATION received notification that pt had reservations about going home today but had been cleared on every account for return home. This VALVE REPAIRER RECLAMATION met w/pt and son in law to review concerns and assess for any change in DC needs. Pt admits nervousness about going from a controlled, acute care setting to a more uncontrolled home environment. This VALVE REPAIRER RECLAMATION explained that every professional involved in her care today felt she was ready to DC home and then reviewed home elements that pt was unsettled about, pt inevitably agreed to return home and pt's dtr/son in law felt confident about taking pt back to her condo, son in law would be available to stay w/pt for at least 2 weeks as needed. P: DC home today w/family via pov PEDRO Cohen
== END 2019-05-25 14:46 | disposition home or self-care (01) ==
LOC: AC 05-25 14:37 → OR 05-25 14:57
PROVIDERS: Admitting Provider Orthopaedic Surgery; PCP Physician Assistant; Visit Provider Orthopaedic Surgery
PROC: 0SRC0JZ Replacement of Right Knee Joint with Synthetic Substitute, Open Approach (ICD-10-PCS; CPT 27447; principal; 2019-05-23 12:15)
DX: M17.11 Unilateral primary osteoarthritis, right knee (principal); E66.9 Obesity, unspecified; I10 Essential (primary) hypertension; E78.5 Hyperlipidemia, unspecified; E11.9 Type 2 diabetes mellitus without complications; Z79.84 Long term (current) use of oral hypoglycemic drugs
CPT/HCPCS: 27447; 36415; 73560; 85014; 85018; 97110; 97116; 97161; 97530; C1776; G0378; C9290; J0690; J2250; J2274; J2405; J2704; J3010